=== PATIENT | female | born 1935 | race Asian ===

== ENCOUNTER 2016-10-26 11:43 | Inpatient (IN) | payer MEDICARE, OTHER ==
[~2016-10-26] VITALS: Ht 170.2 cm; Wt 59.0 kg
[2016-10-26] MEDS ORDERED: URECHOLINE25 M1 ORAL (12:20)
[2016-10-26] MEDS ORDERED: SENNA8.6 M2 PO (12:20)
[2016-10-26] MEDS ORDERED: GLYTROL250 ML PO (12:20)
[2016-10-26] MEDS ORDERED: ASPIRIN81 MG ORAL (12:20)
[2016-10-26] MEDS ORDERED: ATORVASTATIN CA20 MG ORAL (12:20)
[2016-10-26] MEDS ORDERED: CLOPIDOGREL75 MG ORAL (12:20)
[2016-10-26] MEDS ORDERED: MELATONIN3 MG ORAL (12:26)
[2016-10-26] MEDS ORDERED: MIRTAZAPINE15 MG ORAL (12:26)
[2016-10-26] MEDS ORDERED: PEPCID20 MG ORAL (12:26)
[2016-10-26] MEDS ORDERED: NOVOLOG100 UNIT/3 SUBQ (12:26)
[2016-10-26] MEDS ORDERED: METFORMIN HCL500 M1 ORAL (12:26)
[2016-10-26] MEDS ORDERED: MULTIVITAMINS1 EAC8 ORAL (12:26)
[2016-10-26] MEDS ORDERED: BISACODYL5 MG ORAL (12:26)
[2016-10-26] MEDS ORDERED: JANUVIA25 MG ORAL (12:26)
[2016-10-26] MEDS ORDERED: ACTOS15 MG ORAL (12:26)
[2016-10-26] MEDS ORDERED: TRAVATAN Z5 ML OP (12:26)
[2016-10-26] MEDS ORDERED: LANTUS SOL100 UNIT/1 SUBQ (12:26)
[2016-10-26 12:30] VITALS: BP 118/61
[2016-10-26 12:51] LABS: BASOPHILS % (AUTO) 0.6 % (0.0-2.0); EOSINOPHILS % (AUTO) 0.2 % (0.0-3.0); LYMPHOCYTES % (AUTO) 20.1 % (20.0-45.0); MEAN CORPUSCULAR HEMOGLOBIN 31.1 PG (27.0-31.0); MEAN CORPUSCULAR VOLUME 94 FL (80-99); MEAN PLATELET VOLUME 10.7 FL (6.5-10.1); MONOCYTES % (AUTO) 4.9 % (1.0-10.0); NEUTROPHILS % (AUTO) 74.3 % (45.0-75.0); PLATELET COUNT 124 K/UL (150-450); RED BLOOD COUNT 3.91 M/UL (4.20-5.40); RED CELL DISTRIBUTION WIDTH 12.8 % (11.6-14.8); WHITE BLOOD COUNT 11.2 K/UL (4.8-10.8)
[2016-10-26 12:52] LABS: APPEARANCE,URINE SLIGHTLY CLOUDY; KETONES,URINE NEGATIVE (NEGATIVE); LEUKOCYTE ESTERASE ,URINE 3+ (NEGATIVE); NITRITE,URINE NEGATIVE (NEGATIVE); PH,URINE 5 (4.5-8.0); PROTEIN,URINE 1+ (NEGATIVE); UROBILINOGEN,URINE NORMAL MG/DL (0.0-1.0)
[2016-10-26 12:53] LABS: TROPONIN I < 0.30 ng/mL (<=0.30)
[2016-10-26 12:56] LABS: ALANINE AMINOTRANSFERASE 16 U/L (3-33); ALBUMIN/GLOBULIN RATIO 0.4 (1.0-2.7); ANION GAP 12 (5-15); ASPARTATE AMINO TRANSFERASE 33 U/L (5-40); CALCIUM 8.2 mg/dL (8.6-10.2); CARBON DIOXIDE 30 mEQ/L (20-30); CHLORIDE 97 mEQ/L (98-107); CREATININE 0.4 mg/dL (0.5-0.9); HEMOLYSIS 39; POTASSIUM 2.9 mEQ/L (3.4-4.9); SODIUM 139 mEQ/L (135-145); TOTAL PROTEIN 6.3 g/dL (6.6-8.7)
[2016-10-26 13:04] LABS: BACTERIA,URINE MODERATE /HPF; SQUAMOUS EPITHELIAL CELL,UR FEW /LPF (NONE/OCC); WBC,URINE 15-20 /HPF (0 - 2)
[2016-10-26 13:06] LABS: CKMB < 1.5 ng/mL (< 3.8)
[2016-10-26 14:00] VITALS: BP 127/51
--- NOTE | 2016-10-26 14:16 | Emergency Room Report ---
History of Present Illness General Chief Complaint: General Complaint Source: Medical Record Present Illness HPI 81-year-old female presents to ED for evaluation. Per EMS patient noted to be weak with poor oral intake for several days now. He resides in convalescent home. Patient was being treated for UTI with antibiotics. However patient noted to be more altered his usual, with declining oral intake. No aggravating or relieving factors. Patient afebrile. Patient is DO NOT RESUSCITATE. No reported chest pain or shortness of breath. No reported nausea or vomiting. No other associated symptoms Allergies: Coded Allergies: IBUPROFEN (Verified Allergy, Intermediate, 10/26/16) Patient History Past Medical History: dementia Past Surgical History: none Pertinent Family History: none Social History: Denies: alcohol use, drug use, smoking Now: No Immunizations: UTD Reviewed Nursing Documentation: PMH: Agreed, PSxH: Agreed Nursing Documentation-PMH Past Medical History: No History, Except For Hx Hypertension: Yes Hx Diabetes: Yes Hx Neurological Problems: Yes - dementia Review of Systems All Other Systems: negative except mentioned in HPI Physical Exam Vital Signs Date Time Temp Pulse Resp B/P Pulse Ox O2 Delivery O2 Flow Rate FiO2 10/26/16 11:48 98.2 70 18 140/64 96 Room Air Sp02 EP Interpretation: reviewed, normal General Appearance: no apparent distress, lethargic, thin Head: normocephalic Eyes: bilateral eye PERRL, bilateral eye normal inspection ENT: normal ENT inspection Neck: normal inspection Respiratory: chest non-tender, lungs clear, normal breath sounds, speaking full sentences Cardiovascular #1: regular rate, rhythm, no edema Gastrointestinal: normal bowel sounds, non tender, soft, non-distended, no guarding, no rebound Rectal: deferred Genitourinary: no CVA tenderness Musculoskeletal: normal inspection Neurologic: other - dementia Psychiatric: other - dementia Skin: normal inspection Lymphatic: normal inspection Medical Decision Making Diagnostic Impression: Primary Impression: Dehydration Additional Impressions: UTI (urinary tract infection) Qualified Codes: N39.0 - Urinary tract infection, site not specified Hypokalemia ER Course Hospital Course 81-year-old female presenting to ED with generalized weakness, poor oral intake Differential diagnoses include: Pneumonia, UTI, sepsis, dehydration, [place]/ unstable angina Clinical course Patient placed on stretcher. On bulb planter with stable vitals are ED course. After initial history and physical, I ordered labs, IV fluids, EKG, chest x-ray, blood cultures, UA. Labs - K 2.9, noted leukocytosis, troponins negative, UA grossly positive for UTI, lactate ok CXR - no acute process Abx given. K replted. IVFs given. Case discussed with Dr Joya and they agreed to admit patient to their service for further care and support I feel this is a highly complex case requiring extensive working including EKG/ Rhythm strip, Xray/CT/US, Blood/urine lab work, repeat exams while in ED, and administration of strong opiates/narcotics for pain control, admission to hospital or close patient follow up. Diagnosis - UTI, dehydration, hypokalemia Patient admitted to floor in serious condition Labs Test 10/26/16 12:05 White Blood Count 11.2 K/UL (4.8-10.8) Red Blood Count 3.91 M/UL (4.20-5.40) Hemoglobin 12.2 G/DL (12.0-16.0) Hematocrit 36.8 % (37.0-47.0) Mean Corpuscular Volume 94 FL (80-99) Mean Corpuscular Hemoglobin 31.1 PG (27.0-31.0) Mean Corpuscular Hemoglobin Concent 33.0 G/DL (32.0-36.0) Red Cell Distribution Width 12.8 % (11.6-14.8) Platelet Count 124 K/UL (150-450) Mean Platelet Volume 10.7 FL (6.5-10.1) Neutrophils (%) (Auto) 74.3 % (45.0-75.0) Lymphocytes (%) (Auto) 20.1 % (20.0-45.0) Monocytes (%) (Auto) 4.9 % (1.0-10.0) Eosinophils (%) (Auto) 0.2 % (0.0-3.0) Basophils (%) (Auto) 0.6 % (0.0-2.0) Urine Color Yellow Urine Appearance Slightly cloudy Urine pH 5 (4.5-8.0) Urine Specific [place] 1.015 (1.005-1.035) Urine Protein 1+ (NEGATIVE) Urine Glucose (UA) Negative (NEGATIVE) Urine Ketones Negative (NEGATIVE) Urine Occult Blood 2+ (NEGATIVE) Urine Nitrite Negative (NEGATIVE) Urine Bilirubin Negative (NEGATIVE) Urine Urobilinogen Normal MG/DL (0.0-1.0) Urine Leukocyte Esterase 3+ (NEGATIVE) Urine RBC 2-4 /HPF (0 - 2) Urine WBC 15-20 /HPF (0 - 2) Urine Squamous Epithelial Cells Few /LPF (NONE/OCC) Urine Bacteria Moderate /HPF (NONE) Sodium Level 139 mEQ/L (135-145) Potassium Level 2.9 mEQ/L (3.4-4.9) Chloride Level 97 mEQ/L (98-107) Carbon Dioxide Level 30 mEQ/L (20-30) Anion Gap 12 (5-15) Blood Urea Nitrogen 8 mg/dL (7-23) Creatinine 0.4 mg/dL (0.5-0.9) Estimat Glomerular Filtration Rate mL/min (>60) Glucose Level 67 mg/dL (74-106) Lactic Acid Level 1.70 mmol/L (0.66-2.22) Calcium Level 8.2 mg/dL (8.6-10.2) Total Bilirubin 0.7 mg/dL (0.0-1.2) Aspartate Amino Transf (AST/SGOT) 33 U/L (5-40) Alanine Aminotransferase (ALT/SGPT) 16 U/L (3-33) Alkaline Phosphatase 108 U/L (35-104) Total Creatine Kinase 13 U/L (26-140) Creatine Kinase MB < 1.5 ng/mL (< 3.8) Creatine Kinase MB Relative Index Troponin I < 0.30 ng/mL (<=0.30) Total Protein 6.3 g/dL (6.6-8.7) Albumin 1.9 g/dL (3.5-5.2) Globulin 4.4 g/dL Albumin/Globulin Ratio 0.4 (1.0-2.7) EKG Diagnostic Results Rate: normal Rhythm: NSR ST Segments: no acute changes ASA given to the pt in ED: No Rhythm Strip Diag. Results EP Interpretation: yes Rhythm: NSR, no PVC's, no ectopy Chest X-Ray Diagnostic Results EP Interpretation: Yes Findings: no consolidation, no effusion, no pneumothorax, no acute cardiopulmonary disease Number of Views: 1 Last Vital Signs Date Time Temp Pulse Resp B/P Pulse Ox O2 Delivery O2 Flow Rate FiO2 10/26/16 12:30 99.1 84 20 118/61 99 Room Air Status: improved Disposition: ADMITTED INPATIENT Condition: Serious Referrals: NON PHYSICIAN (PCP) BRIAN GOLD M.D. Oct 26, 2016 14:16
[2016-10-26 15:27] VITALS: BP 126/52
--- NOTE | 2016-10-26 18:15 | History and Physical ---
History of Present Illness General Date patient seen: Oct 26, 2016 Time patient seen: 18:00 Reason for Hospitalization: General Complaint Present Illness HPI 81 y/old female was brought from SNF for evaluation, patient was treated for UTI in SNF with antibiotics Nursing staff noted poor oral intake and increase in generalized weakness over few days patient was more altered than usually no reported fevers, chills no reported n/v/abdominal pain no reported SOB, chest pain Patient DNR/DNI status in ED workup with mild leukocytosis-11.2, UA with evidence of infection ( pyuria, bacteria), lactic acid -WNL CXR no acute process K-2.9, replaced in ED started on Ceftriaxone and transferred to [facility] floor for further management Allergies: Coded Allergies: IBUPROFEN (Verified Allergy, Intermediate, 10/26/16) Medication History Scheduled Aspirin* (Aspirin*), 81 MG ORAL DAILY, (Reported) Atorvastatin Calcium* (Atorvastatin Calcium*), 20 MG ORAL BEDTIME, (Reported) Bethanechol Chl* (Urecholine*), 25 MG ORAL THREE TIMES A DAY, (Reported) Bisacodyl* (Dulcolax*), 5 MG ORAL DAILY, (Reported) Clopidogrel* (Clopidogrel*), 75 MG ORAL DAILY, (Reported) Famotidine (Pepcid), 20 MG ORAL DAILY, (Reported) Insulin Glargine (Lantus), 15 SUBQ BEDTIME, (Reported) Metformin Hcl* (Metformin Hcl*), 500 MG ORAL TWICE A DAY, (Reported) Mirtazapine* (Remeron*), 7.5 MG ORAL BEDTIME, (Reported) Multivitamin With Minerals (Multivitamins With Minerals*), 1 TAB ORAL DAILY, ( Reported) Nut.tx.gluc.intoler,Lac-Fr,Soy (Glytrol), 240 ML PO TID, (Reported) Pioglitazone Hcl* (Actos*), 7.5 MG ORAL DAILY, (Reported) Sennosides (Senna), 8.6 MG PO DAILY, (Reported) Sitagliptin* (Januvia*), 100 MG ORAL DAILY, (Reported) Travoprost (Travatan Z), 5 ML OP BEDTIME, (Reported) Scheduled PRN Melatonin (Melatonin), 3 MG ORAL BEDTIME PRN for Insomnia, (Reported) Miscellaneous Medications Insulin Aspart* (Novolog*), Unknown Dose SUBQ, (Reported) Patient History Healthcare decision maker Resuscitation status Advanced Directive on File Review of Systems ROS Narrative unable to provide any info due to ALOC Physical Exam General Appearance: no apparent distress, cachetic Lines, tubes and drains: peripheral HEENT: normocephalic, atraumatic, anicteric Neck: supple Respiratory/Chest: normal breath sounds, no respiratory distress, no accessory muscle use, other - poorly responsive Cardiovascular/Chest: normal rate, regular rhythm Abdomen: normal bowel sounds, non tender, soft Extremities: other - rigid LE Neurologic: abnormal gait Musculoskeletal: atrophy - BLE Last 24 Hour Vital Signs Date Time Temp Pulse Resp B/P Pulse Ox O2 Delivery O2 Flow Rate FiO2 10/26/16 17:53 98.6 84 21 140/77 100 Room Air 84 10/26/16 15:27 98.6 73 22 126/52 100 Room Air 10/26/16 14:00 73 18 127/51 99 Room Air 10/26/16 12:30 99.1 84 20 118/61 99 Room Air 10/26/16 11:48 98.2 70 18 140/64 96 Room Air Laboratory Tests Test 10/26/16 12:05 White Blood Count 11.2 K/UL (4.8-10.8) H Red Blood Count 3.91 M/UL (4.20-5.40) L Hemoglobin 12.2 G/DL (12.0-16.0) Hematocrit 36.8 % (37.0-47.0) L Mean Corpuscular Volume 94 FL (80-99) Mean Corpuscular Hemoglobin 31.1 PG (27.0-31.0) H Mean Corpuscular Hemoglobin Concent 33.0 G/DL (32.0-36.0) Red Cell Distribution Width 12.8 % (11.6-14.8) Platelet Count 124 K/UL (150-450) L Mean Platelet Volume 10.7 FL (6.5-10.1) H Neutrophils (%) (Auto) 74.3 % (45.0-75.0) Lymphocytes (%) (Auto) 20.1 % (20.0-45.0) Monocytes (%) (Auto) 4.9 % (1.0-10.0) Eosinophils (%) (Auto) 0.2 % (0.0-3.0) Basophils (%) (Auto) 0.6 % (0.0-2.0) Urine Color Yellow Urine Appearance Slightly cloudy Urine pH 5 (4.5-8.0) Urine Specific [place] 1.015 (1.005-1.035) Urine Protein 1+ (NEGATIVE) H Urine Glucose (UA) Negative (NEGATIVE) Urine Ketones Negative (NEGATIVE) Urine Occult Blood 2+ (NEGATIVE) H Urine Nitrite Negative (NEGATIVE) Urine Bilirubin Negative (NEGATIVE) Urine Urobilinogen Normal MG/DL (0.0-1.0) Urine Leukocyte Esterase 3+ (NEGATIVE) H Urine RBC 2-4 /HPF (0 - 2) H Urine WBC 15-20 /HPF (0 - 2) H Urine Squamous Epithelial Cells Few /LPF (NONE/OCC) Urine Bacteria Moderate /HPF (NONE) H Sodium Level 139 mEQ/L (135-145) Potassium Level 2.9 mEQ/L (3.4-4.9) L Chloride Level 97 mEQ/L (98-107) L Carbon Dioxide Level 30 mEQ/L (20-30) Anion Gap 12 (5-15) Blood Urea Nitrogen 8 mg/dL (7-23) Creatinine 0.4 mg/dL (0.5-0.9) L Estimat Glomerular Filtration Rate mL/min (>60) Glucose Level 67 mg/dL (74-106) L Lactic Acid Level 1.70 mmol/L (0.66-2.22) Calcium Level 8.2 mg/dL (8.6-10.2) L Total Bilirubin 0.7 mg/dL (0.0-1.2) Aspartate Amino Transf (AST/SGOT) 33 U/L (5-40) Alanine Aminotransferase (ALT/SGPT) 16 U/L (3-33) Alkaline Phosphatase 108 U/L (35-104) H Total Creatine Kinase 13 U/L (26-140) L Creatine Kinase MB < 1.5 ng/mL (< 3.8) Creatine Kinase MB Relative Index Troponin I < 0.30 ng/mL (<=0.30) Total Protein 6.3 g/dL (6.6-8.7) L Albumin 1.9 g/dL (3.5-5.2) L Globulin 4.4 g/dL Albumin/Globulin Ratio 0.4 (1.0-2.7) L Height (Feet): 5 Height (Inches): 7.00 Weight (Pounds): 130 Medications Current Medications Medications (Trade) Dose Ordered Sig/Patience Route PRN Reason Start Time Stop Time Status Last Admin Dose Admin Potassium Chloride (KCl 10mEq/100ml Premix) 100 ml @ 100 mls/hr Q1H IV 10/26/16 14:15 10/26/16 20:14 10/26/16 16:56 Assessment/Plan Assessment/Plan ASSESSMENT possible sepsis UTI dehydration generalized weakness hypokalemia severe protein calorie malnutrition HTN DM PLAN OF CARE [facility] floor IVF NPO empiric abx, fup with cx ID consult K replaced in ED, check K and Mg in am BS management with sensitive scale of insulin BP management with Clonidine prn swallow eval in am dietary eval in am Venous Duplex BLE, if negative place SCD ( no Heparin due to low PLT) case discussed and evaluated by supervising physician Judy Sal NP ([facility]) Oct 26, 2016 18:15
[2016-10-26] MEDS ORDERED: Morphine Sulfate 2mg/ml Inj IVP PRN (18:45)
[2016-10-26] MEDS: D5 1/2NS 1,000 ML IV SCH (19:26)
[2016-10-26 20:00] VITALS: BP 146/69
--- NOTE | 2016-10-26 20:34 | Consultation ---
Consult Note Consult Note ID Dic # [id number] NICHOLE YOUNG M.D. Oct 26, 2016 20:33
[2016-10-26] MEDS ORDERED: Heparin 5000 units/ml inj SUBQ SCH (21:00)
[2016-10-26] MEDS: NovoLOG Insulin Flexpen SUBQ SCH (21:00)
--- NOTE | 2016-10-26 21:37 | Consultation ---
DATE OF CONSULTATION: 10/26/2016 INFECTIOUS DISEASE CONSULTATION CONSULTING PHYSICIAN: John Maria M.D. REFERRING PHYSICIAN: Judy Sal ([facility] N.PMelodie REASON FOR CONSULTATION: Evaluation of the patient for possible urinary tract infection and antibiotic management. HISTORY OF PRESENT ILLNESS: The patient is an 81-year-old female, who was brought to the hospital due to general weakness. The patient's workup was suggestive of urinary tract infection. Infectious Disease consultation has been requested for further evaluation of the patient's antibiotic management. The patient is overall a poor historian. Much of the information was gathered through the chart and speaking to the staff. PAST MEDICAL HISTORY: 1. History of blindness. 2. History of loss of hearing. 3. History of dementia. 4. History of hyperlipidemia. 5. Hypertension. 6. Diabetes. ALLERGIES: Ibuprofen. SOCIAL HISTORY: Negative for alcohol, drug abuse, or smoking. FAMILY HISTORY: Noncontributory. REVIEW OF SYSTEMS: Limited. Much of the information was gathered through the chart. The patient is a poor historian. PHYSICAL EXAMINATION: VITAL SIGNS: Temperature 98.6 degrees, blood pressure 114/77, pulse 84, and respiratory rate 18. HEENT: No pale conjunctivae. No icterus. PERRLA. Head normocephalic. Mouth, no thrush. NECK: No lymphadenopathy. CHEST: Coarse breathing sounds. HEART: S1 and S2. ABDOMEN: Soft. EXTREMITIES: No cyanosis. NEUROLOGIC: Awake. LABORATORY DATA: White blood cell 11.2, hemoglobin 12, and platelets 124,000. UA, 15 to 20 white blood cells. BUN 8 and creatinine 0.4. ALT and AST unremarkable. Alkaline phosphatase was 108. Chest x-ray is pending. Urine culture is pending. Blood culture is pending. ASSESSMENT: The patient is an 81-year-old female with multiple medical problems as listed above, who was admitted to this medical center with general weakness, possible urinary tract infection. The patient has been appropriately started on Zosyn as empiric treatment. PLAN: 1. We will continue the patient on IV Zosyn day #1. 2. Monitor blood culture. 3. Monitor urine culture. 4. Monitor CBC and BMP. 5. Monitor chest x-ray. Based on the patient's clinical course and laboratories, we will do further recommendations. Thank you, Nurse practitioner, Judy Sal for allowing me to participate in the care of this patient. I will follow the patient with you during this hospitalization. John Maria M.D. DR: BRENDA JOB#: [id number] CC:
[2016-10-27 00:05] VITALS: BP 148/70
[2016-10-27 04:13] VITALS: BP 96/52
[2016-10-27] MEDS: NovoLOG Insulin Flexpen SUBQ SCH ×4 (06:11→20:42)
[2016-10-27 08:04] VITALS: BP 116/47
[2016-10-27 08:10] LABS: MEAN CORPUSCULAR HEMOGLOBIN 31.5 PG (27.0-31.0); MEAN CORPUSCULAR HGB CONC 33.9 G/DL (32.0-36.0); MEAN CORPUSCULAR VOLUME 93 FL (80-99); MEAN PLATELET VOLUME 9.4 FL (6.5-10.1); PLATELET COUNT 146 K/UL (150-450); RED BLOOD COUNT 3.59 M/UL (4.20-5.40); RED CELL DISTRIBUTION WIDTH 12.7 % (11.6-14.8); WHITE BLOOD COUNT 13.7 K/UL (4.8-10.8)
[2016-10-27 08:28] LABS: ANION GAP 10 (5-15); CALCIUM 7.6 mg/dL (8.6-10.2); CARBON DIOXIDE 31 mEQ/L (20-30); CHLORIDE 96 mEQ/L (98-107); CREATININE 0.4 mg/dL (0.5-0.9); HEMOLYSIS 4; MAGNESIUM 1.3 mg/dL (1.7-2.5); SODIUM 137 mEQ/L (135-145)
[2016-10-27 08:42] LABS: HEMOGLOBIN A1C 7.8 % (< 6.0)
[2016-10-27] MEDS: D5 1/2NS 1,000 ML IV SCH ×2 (08:50→22:15)
[2016-10-27 09:00] LABS: BAND NEUTROPHILS % (MANUAL) 2 % (0-8); BASOPHILS % (MANUAL) 0 % (0-2); EOSINOPHILS % (MANUAL) 0 % (0-3); HYPOCHROMASIA 1+; LYMPHOCYTES % (MANUAL) 8 % (20-45); NEUTROPHILS % (MANUAL) 87 % (45-75); PLATELET ESTIMATE ADEQUATE; PLATELET MORPHOLOGY NORMAL; TOTAL CELLS COUNTED 100
--- NOTE | 2016-10-27 09:58 | Cardiology Report ---
APPROVED REPORT EKG Measurement Heart [id number] Sinus rhythm with premature atrial complexes Left axis deviation Pulmonary disease pattern Nonspecific T wave abnormality Abnormal ECG
--- NOTE | 2016-10-27 10:10 | Diagnostic Imaging Report ---
Indication: Shortness of breath Technique: One view of the chest Comparison: none Findings: There is pleural fluid on the left. There may be minimal pleural fluid on the right Lungs are clear except for perhaps some atelectatic changes at the left lung base.. The heart size is normal. Impression: Left-sided pleural effusion. Equivocal minimal right-sided pleural fluid Possible left basilar atelectatic changes. Otherwise clear lungs
--- NOTE | 2016-10-27 11:45 | Infectious Diseases Prog Note ---
Assessment/Plan Assessment/Plan A: The patient is an 81-year-old female, UTI GNR Bacteremia GNR Sepsis History of blindness. History of loss of hearing. Dementia. HLD HTN Diabetes PLAN: cont on IV Zosyn day #2 Monitor blood culture Monitor urine culture. Monitor CBC and BMP. Monitor chest x-ray US of Kidney Subjective Constitutional: Denies: anorexia, chills, drenching sweats, fatigue, fever, no symptoms, other Allergies: Coded Allergies: IBUPROFEN (Verified Allergy, Intermediate, 10/26/16) Objective Vital Signs Last 24 Hour Vital Signs Date Time Temp Pulse Resp B/P Pulse Ox O2 Delivery O2 Flow Rate FiO2 10/27/16 08:04 97.9 101 15 116/47 98 Room Air 10/27/16 04:13 97.0 70 20 96/52 96 Room Air 10/27/16 00:05 97.0 88 20 148/70 99 Room Air 10/26/16 20:00 95.7 83 14 146/69 100 Room Air 10/26/16 17:53 98.6 84 21 140/77 100 Room Air 84 10/26/16 15:27 98.6 73 22 126/52 100 Room Air 10/26/16 14:00 73 18 127/51 99 Room Air 10/26/16 12:30 99.1 84 20 118/61 99 Room Air 10/26/16 11:48 98.2 70 18 140/64 96 Room Air Height (Feet): 5 Height (Inches): 7.00 Weight (Pounds): 130 HEENT: anicteric Respiratory/Chest: normal breath sounds Cardiovascular: normal rate Abdomen: no organomegaly Microbiology Date/Time Source Procedure Growth Status 10/26/16 12:05 Blood Blood Culture - Preliminary Resulted 10/26/16 12:05 Blood Blood Culture - Preliminary Resulted 10/26/16 12:05 Urine,Clean Catch Urine Culture - Preliminary Gram Negative Bacillus 1 Resulted Laboratory Tests Test 10/26/16 12:05 10/27/16 07:40 White Blood Count 11.2 K/UL (4.8-10.8) H 13.7 K/UL (4.8-10.8) H Red Blood Count 3.91 M/UL (4.20-5.40) L 3.59 M/UL (4.20-5.40) L Hemoglobin 12.2 G/DL (12.0-16.0) 11.3 G/DL (12.0-16.0) L Hematocrit 36.8 % (37.0-47.0) L 33.4 % (37.0-47.0) L Mean Corpuscular Volume 94 FL (80-99) 93 FL (80-99) Mean Corpuscular Hemoglobin 31.1 PG (27.0-31.0) H 31.5 PG (27.0-31.0) H Mean Corpuscular Hemoglobin Concent 33.0 G/DL (32.0-36.0) 33.9 G/DL (32.0-36.0) Red Cell Distribution Width 12.8 % (11.6-14.8) 12.7 % (11.6-14.8) Platelet Count 124 K/UL (150-450) L 146 K/UL (150-450) L Mean Platelet Volume 10.7 FL (6.5-10.1) H 9.4 FL (6.5-10.1) Neutrophils (%) (Auto) 74.3 % (45.0-75.0) % (45.0-75.0) Lymphocytes (%) (Auto) 20.1 % (20.0-45.0) % (20.0-45.0) Monocytes (%) (Auto) 4.9 % (1.0-10.0) % (1.0-10.0) Eosinophils (%) (Auto) 0.2 % (0.0-3.0) % (0.0-3.0) Basophils (%) (Auto) 0.6 % (0.0-2.0) % (0.0-2.0) Urine Color Yellow Urine Appearance Slightly cloudy Urine pH 5 (4.5-8.0) Urine Specific [place] 1.015 (1.005-1.035) Urine Protein 1+ (NEGATIVE) H Urine Glucose (UA) Negative (NEGATIVE) Urine Ketones Negative (NEGATIVE) Urine Occult Blood 2+ (NEGATIVE) H Urine Nitrite Negative (NEGATIVE) Urine Bilirubin Negative (NEGATIVE) Urine Urobilinogen Normal MG/DL (0.0-1.0) Urine Leukocyte Esterase 3+ (NEGATIVE) H Urine RBC 2-4 /HPF (0 - 2) H Urine WBC 15-20 /HPF (0 - 2) H Urine Squamous Epithelial Cells Few /LPF (NONE/OCC) Urine Bacteria Moderate /HPF (NONE) H Sodium Level 139 mEQ/L (135-145) 137 mEQ/L (135-145) Potassium Level 2.9 mEQ/L (3.4-4.9) L 3.0 mEQ/L (3.4-4.9) L Chloride Level 97 mEQ/L (98-107) L 96 mEQ/L (98-107) L Carbon Dioxide Level 30 mEQ/L (20-30) 31 mEQ/L (20-30) H Anion Gap 12 (5-15) 10 (5-15) Blood Urea Nitrogen 8 mg/dL (7-23) 5 mg/dL (7-23) L Creatinine 0.4 mg/dL (0.5-0.9) L 0.4 mg/dL (0.5-0.9) L Estimat Glomerular Filtration Rate mL/min (>60) mL/min (>60) Glucose Level 67 mg/dL (74-106) L 85 mg/dL (74-106) Lactic Acid Level 1.70 mmol/L (0.66-2.22) Calcium Level 8.2 mg/dL (8.6-10.2) L 7.6 mg/dL (8.6-10.2) L Total Bilirubin 0.7 mg/dL (0.0-1.2) Aspartate Amino Transf (AST/SGOT) 33 U/L (5-40) Alanine Aminotransferase (ALT/SGPT) 16 U/L (3-33) Alkaline Phosphatase 108 U/L (35-104) H Total Creatine Kinase 13 U/L (26-140) L Creatine Kinase MB < 1.5 ng/mL (< 3.8) Creatine Kinase MB Relative Index Troponin I < 0.30 ng/mL (<=0.30) Total Protein 6.3 g/dL (6.6-8.7) L Albumin 1.9 g/dL (3.5-5.2) L Globulin 4.4 g/dL Albumin/Globulin Ratio 0.4 (1.0-2.7) L Differential Total Cells Counted 100 Neutrophils % (Manual) 87 % (45-75) H Lymphocytes % (Manual) 8 % (20-45) L Monocytes % (Manual) 3 % (1-10) Eosinophils % (Manual) 0 % (0-3) Basophils % (Manual) 0 % (0-2) Band Neutrophils 2 % (0-8) Platelet Estimate Adequate Platelet Morphology Normal Hypochromasia 1+ Hemoglobin A1c 7.8 % (< 6.0) H Magnesium Level 1.3 mg/dL (1.7-2.5) L Current Medications Medications (Trade) Dose Ordered Sig/Patience Route PRN Reason Start Time Stop Time Status Last Admin Dose Admin Clonidine HCl (Catapres) 0.1 mg Q6H PRN ORAL SBP >160 10/26/16 18:45 11/25/16 18:44 Dextrose (Dextrose 50%) STAT PRN IV Hypoglycemia 10/26/16 18:45 11/25/16 18:44 10/26/16 21:47 Dextrose/Sodium Chloride (D5 0.45% NS) 1,000 ml @ 75 mls/hr [id number] IV 10/26/16 19:30 11/25/16 19:29 10/26/16 19:26 Insulin Aspart (NovoLOG) BEFORE MEALS AND HS SUBQ 10/26/16 21:00 11/25/16 20:59 Morphine Sulfate 1 mg 1 mg Q6H PRN IVP For Pain 10/26/16 18:45 11/02/16 18:44 Piperacillin Sod/ Tazobactam Sod/ Sodium Chloride (Zosyn/Sodium Chloride 100ml bag) 100 ml @ 25 mls/hr EVERY 8 HOURS IVPB 10/26/16 22:00 10/31/16 21:59 10/27/16 06:11 NICHOLE YOUNG M.D. Oct 27, 2016 11:45
[2016-10-27 11:47] VITALS: BP 117/50
--- NOTE | 2016-10-27 14:46 | Pulmonology Progress Note ---
Assessment/Plan Problems: (1) UTI (urinary tract infection) (2) Sepsis (3) Acute encephalopathy (4) Severe protein-calorie malnutrition (5) At high risk for aspiration Assessment/Plan iv antibiotics iv fluids check cultures swallow evaluation dvt prophlaxis ID f/u Subjective ROS Limited/Unobtainable: Yes - awake, not communicating Allergies: Coded Allergies: IBUPROFEN (Verified Allergy, Intermediate, 10/26/16) Objective Last 24 Hour Vital Signs Date Time Temp Pulse Resp B/P Pulse Ox O2 Delivery O2 Flow Rate FiO2 10/27/16 11:47 97.7 95 16 117/50 98 Room Air 10/27/16 08:04 97.9 101 15 116/47 98 Room Air 10/27/16 04:13 97.0 70 20 96/52 96 Room Air 10/27/16 00:05 97.0 88 20 148/70 99 Room Air 10/26/16 20:00 95.7 83 14 146/69 100 Room Air 10/26/16 17:53 98.6 84 21 140/77 100 Room Air 84 10/26/16 15:27 98.6 73 22 126/52 100 Room Air Intake and Output 10/26/16 10/27/16 19:00 07:00 Intake Total 50 ml 175 ml Output Total 400 ml 1500 ml Balance -350 ml -1325 ml Intake IV Total 50 ml 175 ml Output Urine Total 400 ml 1500 ml General Appearance: WD/WN Respiratory/Chest: chest wall non-tender, lungs clear Breasts: no masses Cardiovascular: normal peripheral pulses Abdomen: normal bowel sounds, soft, non tender Genitourinary: normal external genitalia Extremities: no cyanosis, no clubbing 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 Lymphatic: no neck adenopathy Microbiology Date/Time Source Procedure Growth Status 10/26/16 12:05 Blood Blood Culture - Preliminary Resulted 10/26/16 12:05 Blood Blood Culture - Preliminary Resulted 10/26/16 12:05 Urine,Clean Catch Urine Culture - Preliminary Gram Negative Bacillus 1 Resulted Laboratory Tests 10/27/16 07:40: White Blood Count 13.7H, Red Blood Count 3.59L, Hemoglobin 11.3L, Hematocrit 33.4L, Mean Corpuscular Volume 93, Mean Corpuscular Hemoglobin 31.5H, Mean Corpuscular Hemoglobin Concent 33.9, Red Cell Distribution Width 12.7, Platelet Count 146L, Mean Platelet Volume 9.4, Neutrophils (%) (Auto) , Lymphocytes (%) ( Auto) , Monocytes (%) (Auto) , Eosinophils (%) (Auto) , Basophils (%) (Auto) , Differential Total Cells Counted 100, Neutrophils % (Manual) 87H, Lymphocytes % (Manual) 8L, Monocytes % (Manual) 3, Eosinophils % (Manual) 0, Basophils % ( Manual) 0, Band Neutrophils 2, Platelet Estimate Adequate, Platelet Morphology Normal, Hypochromasia 1+, Sodium Level 137, Potassium Level 3.0L, Chloride Level 96L, Carbon Dioxide Level 31H, Anion Gap 10, Blood Urea Nitrogen 5L, Creatinine 0.4L, Estimat Glomerular Filtration Rate , Glucose Level 85, Hemoglobin A1c 7.8H, Calcium Level 7.6L, Magnesium Level 1.3L Current Medications Medications (Trade) Dose Ordered Sig/Patience Route PRN Reason Start Time Stop Time Status Last Admin Dose Admin Clonidine HCl (Catapres) 0.1 mg Q6H PRN ORAL SBP >160 10/26/16 18:45 11/25/16 18:44 Dextrose (Dextrose 50%) STAT PRN IV Hypoglycemia 10/26/16 18:45 11/25/16 18:44 10/26/16 21:47 Dextrose/Sodium Chloride (D5 0.45% NS) 1,000 ml @ 75 mls/hr [id number] IV 10/26/16 19:30 11/25/16 19:29 10/26/16 19:26 Insulin Aspart (NovoLOG) BEFORE MEALS AND HS SUBQ 10/26/16 21:00 11/25/16 20:59 Morphine Sulfate 1 mg 1 mg Q6H PRN IVP For Pain 10/26/16 18:45 11/02/16 18:44 Piperacillin Sod/ Tazobactam Sod/ Sodium Chloride (Zosyn/Sodium Chloride 100ml bag) 100 ml @ 25 mls/hr EVERY 8 HOURS IVPB 10/26/16 22:00 10/31/16 21:59 10/27/16 13:13 MALOU DOUGLAS Oct 27, 2016 14:46
[2016-10-27 16:09] VITALS: BP 129/65
--- NOTE | 2016-10-27 17:56 | Wound Care Consultation ---
Wound Assessment Wound Assessment #1: Wound Present on Admission: Yes New Wound: No Status Change of Wound: No Wound Location Body Site Modif: left, lower, anterior Wound Location Body Site: leg Wound Type: other - open necrotic wound Julianna Test: Does not Julianna Wound Thickness: Full Thickness Wound Length: 19.0 Wound Width: 11.0 Wound Depth: utd Percent of Wound Black/Brown: 100 Wound Drainage Description: Serosanguineous Wound Drainage Amount: Scant Wound Drainage Odor: None/Absent Tissue Surrounding Wound: Erythemic Wound General Appearance: Blackened, Necrotic Wound Assessment #2: Wound Number: #2 Wound Present on Admission: Yes New Wound: No Status Change of Wound: No Wound Location Body Site Modif: left Wound Location Body Site: heel Wound Type: pressure ulcer Julianna Test: Does not Julianna Pressure Ulcer Stage: deep tissue injury Wound Thickness: Full Thickness Wound Length: 4.0 Wound Width: 3.0 Wound Depth: utd Percent of Wound Purple/Maroon: 100 Wound Drainage Amount: None Wound Drainage Odor: None/Absent Tissue Surrounding Wound: Intact Wound General Appearance: Asymptomatic, Reddened Wound Assessment #3: Wound Number: #3 Wound Present on Admission: Yes New Wound: No Status Change of Wound: No Wound Location Body Site Modif: right Wound Location Body Site: toe - big Wound Type: pressure ulcer Julianna Test: Does not Julianna Wound Thickness: Full Thickness Wound Length: 3.0 Wound Width: 3.0 Wound Depth: utd Percent of Wound Purple/Maroon: 100 Wound Drainage Amount: None Wound Drainage Odor: None/Absent Tissue Surrounding Wound: Intact Wound General Appearance: Asymptomatic, Reddened Wound Assessment #4: Wound Number: #4 Wound Present on Admission: Yes New Wound: No Status Change of Wound: No Wound Location Body Site Modif: mid Wound Location Body Site: sacral Wound Type: pressure ulcer Julianna Test: Does not Julianna Pressure Ulcer Stage: I Wound Drainage Amount: None Wound Drainage Odor: None/Absent Tissue Surrounding Wound: Erythemic Wound General Appearance: Reddened Wound Comment #1 Left lower anterior leg open necrotic wound #2 Left heel DTI pressure ulcer #3 Right big toe DTI pressure ulcer #4 Sacral stage I pressure ulcer Recommendation -Keep clean and dry -Turn and reposition -Local wound care with Betadine and dry drg on DTI areas on right big toe and left heel -Local wound care on necrotic open wound on left lower anterior leg with Betadine and adaptic followed by dry drg -Apply skin barrier cream on sacral area -Offload both heels -Elevate both legs -Low air loss overlay mattress -Optimize nutrition -Assess and f/u accordingly for an changes NEY CABALLERO RN Oct 27, 2016 17:56
[2016-10-27 20:14] VITALS: BP 125/75
[2016-10-27] MEDS: Heparin 5000 units/ml inj SUBQ SCH (20:54)
[2016-10-28] VITALS: BP 128/70
[2016-10-28] MEDS: NovoLOG Insulin Flexpen SUBQ SCH ×4 (06:00→21:00)
[2016-10-28 07:19] LABS: INR 1.2 (0.9-1.1); PROTHROMBIN TIME 12.3 SEC (9.30-11.50)
[2016-10-28 07:27] LABS: ALANINE AMINOTRANSFERASE 11 U/L (3-33); ALBUMIN/GLOBULIN RATIO 0.4 (1.0-2.7); ANION GAP 13 (5-15); ASPARTATE AMINO TRANSFERASE 9 U/L (5-40); CALCIUM 7.3 mg/dL (8.6-10.2); CARBON DIOXIDE 26 mEQ/L (20-30); CHLORIDE 93 mEQ/L (98-107); CREATININE 0.4 mg/dL (0.5-0.9); HEMOLYSIS 1; MAGNESIUM 1.8 mg/dL (1.7-2.5); MEAN CORPUSCULAR HEMOGLOBIN 31.2 PG (27.0-31.0); MEAN CORPUSCULAR HGB CONC 33.4 G/DL (32.0-36.0); MEAN CORPUSCULAR VOLUME 94 FL (80-99); MEAN PLATELET VOLUME 8.4 FL (6.5-10.1); PHOSPHORUS 2.4 mg/dL (2.5-4.8); PLATELET COUNT 172 K/UL (150-450); POTASSIUM 4.2 mEQ/L (3.4-4.9); RED BLOOD COUNT 3.19 M/UL (4.20-5.40); RED CELL DISTRIBUTION WIDTH 13.6 % (11.6-14.8); SODIUM 132 mEQ/L (135-145); TOTAL PROTEIN 5.4 g/dL (6.6-8.7); WHITE BLOOD COUNT 13.4 K/UL (4.8-10.8)
[2016-10-28 07:47] VITALS: BP 143/64
[2016-10-28 08:39] LABS: BAND NEUTROPHILS % (MANUAL) 0 % (0-8); BASOPHILS % (MANUAL) 0 % (0-2); EOSINOPHILS % (MANUAL) 0 % (0-3); LYMPHOCYTES % (MANUAL) 11 % (20-45); NEUTROPHILS % (MANUAL) 87 % (45-75); PLATELET ESTIMATE ADEQUATE; PLATELET MORPHOLOGY NORMAL; TOTAL CELLS COUNTED 100
[2016-10-28] MEDS: Heparin 5000 units/ml inj SUBQ SCH ×2 (09:25→21:44)
[2016-10-28] MEDS: D5 1/2NS 1,000 ML IV SCH (09:27)
--- NOTE | 2016-10-28 09:29 | Diagnostic Imaging Report ---
Indications: Abnormal renal function tests Technique: Transabdominal real-time grayscale and duplex Doppler imaging of the kidneys, retroperitoneum, and urinary bladder was performed Findings: Comparison: None Right kidney measures 12.6 cm in length. Normal contour, echotexture, cortical thickness. 5 mm echogenic shadowing focus interpolar parenchymal-sinus junction. No additional focal lesions, hydronephrosis, or obvious perinephric abnormalities. Left kidney measures 10.3 cm in length. Lobulated surface contour. Normal cortical thickness and echogenicity. 9 mm echogenic shadowing focus upper pole parenchymal that sinus junction.. No additional focal lesions, hydronephrosis, or obvious perinephric abnormalities. The intrahepatic portion of inferior vena cava is patent and normal caliber. Incidentally noted is fluid in the basal aspect of the right pleural space. The urinary bladder is collapsed around Clifton catheter. Mural thickening not excludable.. IMPRESSION: Bilateral nonobstructive nephrolithiasis Persistent lobation left kidney, developmental variant Otherwise sonographically unremarkable kidneys--no evidence of obstruction Collapsed urinary bladder. Pathologic mural thickening not excludable Right pleural effusion, nonspecific
--- NOTE | 2016-10-28 10:36 | Infectious Diseases Prog Note ---
Assessment/Plan Assessment/Plan A: The patient is an 81-year-old female, UTI ESBL E Coli US of Kidney : Bilateral nonobstructive nephrolithiasis Bacteremia GNR Sepsis Leucocytosis History of blindness. History of loss of hearing. Dementia. HLD HTN Diabetes PLAN: cont on IV Zosyn day # 3 change to Merrem d# / , upon Dc may change to Invanz 1 gm daily to complete the course Monitor blood culture Monitor CBC and BMP. Monitor chest x-ray Subjective Allergies: Coded Allergies: IBUPROFEN (Verified Allergy, Intermediate, 10/26/16) Objective Vital Signs Last 24 Hour Vital Signs Date Time Temp Pulse Resp B/P Pulse Ox O2 Delivery O2 Flow Rate FiO2 10/28/16 07:47 98.1 96 15 143/64 99 Room Air 10/28/16 00:00 98.6 96 20 128/70 92 Room Air 10/27/16 20:14 97.5 82 18 125/75 98 Room Air 10/27/16 16:09 97.3 89 18 129/65 98 Room Air 10/27/16 11:47 97.7 95 16 117/50 98 Room Air Height (Feet): 5 Height (Inches): 7.00 Weight (Pounds): 130 Microbiology Date/Time Source Procedure Growth Status 10/26/16 12:05 Blood Blood Culture - Preliminary Gram Negative Bacillus 1 Resulted 10/26/16 12:05 Blood Blood Culture - Preliminary Gram Negative Bacillus 1 Resulted 10/26/16 12:15 Nasal Nares MRSA Culture - Final NO METHICILLIN RESISTANT STAPH AUREUS... Complete 10/26/16 12:05 Urine,Clean Catch Urine Culture - Final Escherichia Coli - Esbl Complete 10/26/16 12:15 Rectum VRE Culture - Final NO VANCOMYCIN RESISTANT ENTEROCOCCUS ... Complete Laboratory Tests Test 10/28/16 06:45 White Blood Count 13.4 K/UL (4.8-10.8) H Red Blood Count 3.19 M/UL (4.20-5.40) L Hemoglobin 10.0 G/DL (12.0-16.0) L Hematocrit 29.9 % (37.0-47.0) L Mean Corpuscular Volume 94 FL (80-99) Mean Corpuscular Hemoglobin 31.2 PG (27.0-31.0) H Mean Corpuscular Hemoglobin Concent 33.4 G/DL (32.0-36.0) Red Cell Distribution Width 13.6 % (11.6-14.8) Platelet Count 172 K/UL (150-450) Mean Platelet Volume 8.4 FL (6.5-10.1) Neutrophils (%) (Auto) % (45.0-75.0) Lymphocytes (%) (Auto) % (20.0-45.0) Monocytes (%) (Auto) % (1.0-10.0) Eosinophils (%) (Auto) % (0.0-3.0) Basophils (%) (Auto) % (0.0-2.0) Differential Total Cells Counted 100 Neutrophils % (Manual) 87 % (45-75) H Lymphocytes % (Manual) 11 % (20-45) L Monocytes % (Manual) 2 % (1-10) Eosinophils % (Manual) 0 % (0-3) Basophils % (Manual) 0 % (0-2) Band Neutrophils 0 % (0-8) Platelet Estimate Adequate Platelet Morphology Normal Red Blood Cell Morphology Normal Prothrombin Time 12.3 SEC (9.30-11.50) H Prothromb Time International Ratio 1.2 (0.9-1.1) H Activated Partial Thromboplast Time 33 SEC (23-33) Sodium Level 132 mEQ/L (135-145) L Potassium Level 4.2 mEQ/L (3.4-4.9) Chloride Level 93 mEQ/L (98-107) L Carbon Dioxide Level 26 mEQ/L (20-30) Anion Gap 13 (5-15) Blood Urea Nitrogen 5 mg/dL (7-23) L Creatinine 0.4 mg/dL (0.5-0.9) L Estimat Glomerular Filtration Rate mL/min (>60) Glucose Level 223 mg/dL (74-106) #H Calcium Level 7.3 mg/dL (8.6-10.2) L Phosphorus Level 2.4 mg/dL (2.5-4.8) L Magnesium Level 1.8 mg/dL (1.7-2.5) Total Bilirubin 0.7 mg/dL (0.0-1.2) Aspartate Amino Transf (AST/SGOT) 9 U/L (5-40) Alanine Aminotransferase (ALT/SGPT) 11 U/L (3-33) Alkaline Phosphatase 97 U/L (35-104) Total Protein 5.4 g/dL (6.6-8.7) L Albumin 1.7 g/dL (3.5-5.2) L Globulin 3.7 g/dL Albumin/Globulin Ratio 0.4 (1.0-2.7) L Current Medications Medications (Trade) Dose Ordered Sig/Patience Route PRN Reason Start Time Stop Time Status Last Admin Dose Admin Clonidine HCl (Catapres) 0.1 mg Q6H PRN ORAL SBP >160 10/26/16 18:45 11/25/16 18:44 Dextrose (Dextrose 50%) STAT PRN IV Hypoglycemia 10/26/16 18:45 11/25/16 18:44 10/26/16 21:47 Dextrose/Sodium Chloride (D5 0.45% NS) 1,000 ml @ 75 mls/hr [id number] IV 10/26/16 19:30 11/25/16 19:29 10/28/16 09:27 Heparin Sodium (Porcine) (Heparin 5000 units/ml) 5,000 units EVERY 12 HOURS SUBQ 10/27/16 21:00 11/26/16 20:59 10/28/16 09:25 Insulin Aspart (NovoLOG) BEFORE MEALS AND HS SUBQ 10/26/16 21:00 11/25/16 20:59 Morphine Sulfate 1 mg 1 mg Q6H PRN IVP For Pain 10/26/16 18:45 11/02/16 18:44 Piperacillin Sod/ Tazobactam Sod/ Sodium Chloride (Zosyn/Sodium Chloride 100ml bag) 100 ml @ 25 mls/hr EVERY 8 HOURS IVPB 10/26/16 22:00 10/31/16 21:59 10/28/16 05:15 NICHOLE YOUNG M.D. Oct 28, 2016 10:36
[2016-10-28 11:21] VITALS: BP 129/53
[2016-10-28] MEDS: [UNRECOGNIZED DRUG - OTHER] IVPB SCH ×4 (12:52→21:43)
[2016-10-28] MEDS: MEROPENEM IVPB SCH ×4 (12:52→21:43)
[2016-10-28] MEDS ORDERED: Tubing IV Secondary IV ONE ×2 (13:12→17:51)
[2016-10-28] MEDS ORDERED: D5 1/2NS 1000ml IV ONE ×2 (13:12→17:51)
[2016-10-28] MEDS ORDERED: NS 275ml ONE (13:12)
[2016-10-28 16:00] VITALS: BP 137/61
--- NOTE | 2016-10-28 16:02 | Pulmonology Progress Note ---
Assessment/Plan Problems: (1) UTI (urinary tract infection) (2) Sepsis (3) Acute encephalopathy (4) Severe protein-calorie malnutrition (5) At high risk for aspiration Assessment/Plan iv antibiotics iv fluids check cultures swallow evaluation dvt prophlaxis check eletrolytes continue fluids check sensitiviy of E.coli Subjective ROS Limited/Unobtainable: Yes Allergies: Coded Allergies: IBUPROFEN (Verified Allergy, Intermediate, 10/26/16) Objective Last 24 Hour Vital Signs Date Time Temp Pulse Resp B/P Pulse Ox O2 Delivery O2 Flow Rate FiO2 10/28/16 11:21 97.7 86 15 129/53 98 Room Air 10/28/16 07:47 98.1 96 15 143/64 99 Room Air 10/28/16 00:00 98.6 96 20 128/70 92 Room Air 10/27/16 20:14 97.5 82 18 125/75 98 Room Air 10/27/16 16:09 97.3 89 18 129/65 98 Room Air Intake and Output 10/27/16 10/28/16 19:00 07:00 Intake Total 625 ml 550 ml Output Total 200 ml 500 ml Balance 425 ml 50 ml Intake IV Total 625 ml 550 ml Output Urine Total 200 ml 500 ml HEENT: normocephalic, atraumatic Respiratory/Chest: lungs clear Abdomen: normal bowel sounds, soft, non tender Extremities: no cyanosis Neurologic/Psychiatric: scientist electronics II-XII grossly normal Lymphatic: no neck adenopathy Musculoskeletal: normal muscle bulk, no effusion Microbiology Date/Time Source Procedure Growth Status 10/26/16 12:05 Blood Blood Culture - Preliminary Gram Negative Bacillus 1 Resulted 10/26/16 12:05 Blood Blood Culture - Preliminary Gram Negative Bacillus 1 Resulted 10/26/16 12:15 Nasal Nares MRSA Culture - Final NO METHICILLIN RESISTANT STAPH AUREUS... Complete 10/26/16 12:05 Urine,Clean Catch Urine Culture - Final Escherichia Coli - Esbl Complete 10/26/16 12:15 Rectum VRE Culture - Final NO VANCOMYCIN RESISTANT ENTEROCOCCUS ... Complete Laboratory Tests 10/28/16 06:45: White Blood Count 13.4H, Red Blood Count 3.19L, Hemoglobin 10.0L, Hematocrit 29.9L, Mean Corpuscular Volume 94, Mean Corpuscular Hemoglobin 31.2H, Mean Corpuscular Hemoglobin Concent 33.4, Red Cell Distribution Width 13.6, Platelet Count 172, Mean Platelet Volume 8.4, Neutrophils (%) (Auto) , Lymphocytes (%) ( Auto) , Monocytes (%) (Auto) , Eosinophils (%) (Auto) , Basophils (%) (Auto) , Differential Total Cells Counted 100, Neutrophils % (Manual) 87H, Lymphocytes % (Manual) 11L, Monocytes % (Manual) 2, Eosinophils % (Manual) 0, Basophils % ( Manual) 0, Band Neutrophils 0, Platelet Estimate Adequate, Platelet Morphology Normal, Red Blood Cell Morphology Normal, Prothrombin Time 12.3H, Prothromb Time International Ratio 1.2H, Activated Partial Thromboplast Time 33, Sodium Level 132L, Potassium Level 4.2, Chloride Level 93L, Carbon Dioxide Level 26, Anion Gap 13, Blood Urea Nitrogen 5L, Creatinine 0.4L, Estimat Glomerular Filtration Rate , Glucose Level 223#H, Calcium Level 7.3L, Phosphorus Level 2.4L , Magnesium Level 1.8, Total Bilirubin 0.7, Aspartate Amino Transf (AST/SGOT) 9 , Alanine Aminotransferase (ALT/SGPT) 11, Alkaline Phosphatase 97, Total Protein 5.4L, Albumin 1.7L, Globulin 3.7, Albumin/Globulin Ratio 0.4L Current Medications Medications (Trade) Dose Ordered Sig/Patience Route PRN Reason Start Time Stop Time Status Last Admin Dose Admin Clonidine HCl (Catapres) 0.1 mg Q6H PRN ORAL SBP >160 10/26/16 18:45 11/25/16 18:44 Dextrose (Dextrose 50%) STAT PRN IV Hypoglycemia 10/26/16 18:45 11/25/16 18:44 10/26/16 21:47 Dextrose/Sodium Chloride (D5 0.45% NS) 1,000 ml @ 75 mls/hr [id number] IV 10/26/16 19:30 11/25/16 19:29 10/28/16 09:27 Heparin Sodium (Porcine) 5000 units 5,000 units EVERY 12 HOURS SUBQ 10/27/16 21:00 11/26/16 20:59 10/28/16 09:25 Insulin Aspart (NovoLOG) BEFORE MEALS AND HS SUBQ 10/26/16 21:00 11/25/16 20:59 Meropenem/Sodium Chloride (Merrem/Sodium Chloride 100ml bag) 100 ml @ 200 mls/hr Q12HR IVPB 10/28/16 12:30 11/02/16 12:29 10/28/16 12:52 Morphine Sulfate (Morphine Sulfate) 1 mg Q6H PRN IVP For Pain 10/26/16 18:45 11/02/16 18:44 MALOU DOUGLAS Oct 28, 2016 16:02
[2016-10-28 19:00] VITALS: BP 127/53
[2016-10-29] VITALS: BP 126/54
[2016-10-29] MEDS: D5 1/2NS 1,000 ML IV SCH ×2 (01:39→14:22)
[2016-10-29 04:00] VITALS: BP 141/62
[2016-10-29] MEDS: NovoLOG Insulin Flexpen SUBQ SCH ×4 (06:29→22:20)
[2016-10-29 08:06] VITALS: BP 129/60
[2016-10-29] MEDS: Heparin 5000 units/ml inj SUBQ SCH (08:26)
[2016-10-29] MEDS: MEROPENEM IVPB SCH ×4 (08:27→22:16)
[2016-10-29] MEDS: [UNRECOGNIZED DRUG - OTHER] IVPB SCH ×4 (08:27→22:16)
--- NOTE | 2016-10-29 10:13 | Infectious Diseases Prog Note ---
Assessment/Plan Assessment/Plan A: The patient is an 81-year-old female, UTI ESBL E Coli US of Kidney : Bilateral nonobstructive nephrolithiasis Bacteremia ESBL E Coli Sepsis Leucocytosis History of blindness. History of loss of hearing. Dementia. HLD HTN Diabetes PLAN: cont on Merrem d# 2 / , upon Dc may change to Invanz 1 gm daily to complete the course ( SP IV Zosyn day # 3 ) Monitor blood culture Monitor CBC and BMP. Monitor chest x-ray Subjective Constitutional: Denies: anorexia, chills, drenching sweats, fatigue, fever, no symptoms, other Allergies: Coded Allergies: IBUPROFEN (Verified Allergy, Intermediate, 10/26/16) Objective Vital Signs Last 24 Hour Vital Signs Date Time Temp Pulse Resp B/P Pulse Ox O2 Delivery O2 Flow Rate FiO2 10/29/16 08:06 98.1 95 16 129/60 97 Room Air 10/29/16 04:00 97.3 96 20 141/62 97 Room Air 10/29/16 00:00 97.9 86 20 126/54 98 Room Air 10/28/16 19:00 98.1 88 20 127/53 98 Room Air 10/28/16 16:00 98.1 88 20 137/61 97 Room Air 10/28/16 11:21 97.7 86 15 129/53 98 Room Air Height (Feet): 5 Height (Inches): 7.00 Weight (Pounds): 130 HEENT: anicteric Cardiovascular: normal rate, regular rhythm Abdomen: soft, non tender, no organomegaly Microbiology Date/Time Source Procedure Growth Status 10/26/16 12:05 Blood Blood Culture - Final Escherichia Coli - Esbl Complete 10/26/16 12:05 Blood Blood Culture - Final Escherichia Coli - Esbl Complete 10/26/16 12:15 Nasal Nares MRSA Culture - Final NO METHICILLIN RESISTANT STAPH AUREUS... Complete 10/26/16 12:05 Urine,Clean Catch Urine Culture - Final Escherichia Coli - Esbl Complete 10/26/16 12:15 Rectum VRE Culture - Final NO VANCOMYCIN RESISTANT ENTEROCOCCUS ... Complete Current Medications Medications (Trade) Dose Ordered Sig/Patience Route PRN Reason Start Time Stop Time Status Last Admin Dose Admin Clonidine HCl (Catapres) 0.1 mg Q6H PRN ORAL SBP >160 10/26/16 18:45 11/25/16 18:44 Dextrose (Dextrose 50%) STAT PRN IV Hypoglycemia 10/26/16 18:45 11/25/16 18:44 10/26/16 21:47 Dextrose/Sodium Chloride (D5 0.45% NS) 1,000 ml @ 75 mls/hr [id number] IV 10/26/16 19:30 11/25/16 19:29 10/29/16 01:39 Heparin Sodium (Porcine) 5000 units 5,000 units EVERY 12 HOURS SUBQ 10/27/16 21:00 11/26/16 20:59 10/29/16 08:26 Insulin Aspart (NovoLOG) BEFORE MEALS AND HS SUBQ 10/26/16 21:00 11/25/16 20:59 Meropenem/Sodium Chloride (Merrem/Sodium Chloride 100ml bag) 100 ml @ 200 mls/hr Q12HR IVPB 10/28/16 12:30 11/02/16 12:29 10/29/16 08:27 Morphine Sulfate (Morphine Sulfate) 1 mg Q6H PRN IVP For Pain 10/26/16 18:45 11/02/16 18:44 NICHOLE YOUNG M.D. Oct 29, 2016 10:12
[2016-10-29 11:47] VITALS: BP 149/55
--- NOTE | 2016-10-29 15:07 | Pulmonology Progress Note ---
Assessment/Plan Problems: (1) UTI (urinary tract infection) (2) Sepsis (3) Acute encephalopathy (4) Severe protein-calorie malnutrition (5) At high risk for aspiration Assessment/Plan iv antibiotics iv fluids check cultures swallow evaluation dvt prophlaxis check eletrolytes continue fluids mdr Ecoli tolerating diet dc in 1-2 days Subjective ROS Limited/Unobtainable: No Constitutional: Reports: no symptoms Respiratory: Reports: no symptoms Cardiovascular: Reports: no symptoms Allergies: Coded Allergies: IBUPROFEN (Verified Allergy, Intermediate, 10/26/16) Objective Last 24 Hour Vital Signs Date Time Temp Pulse Resp B/P Pulse Ox O2 Delivery O2 Flow Rate FiO2 10/29/16 11:47 97.9 94 15 149/55 98 Room Air 10/29/16 08:06 98.1 95 16 129/60 97 Room Air 10/29/16 04:00 97.3 96 20 141/62 97 Room Air 10/29/16 00:00 97.9 86 20 126/54 98 Room Air 10/28/16 19:00 98.1 88 20 127/53 98 Room Air 10/28/16 16:00 98.1 88 20 137/61 97 Room Air Intake and Output 10/28/16 10/29/16 19:00 07:00 Intake Total 775 ml 825 ml Output Total 800 ml 800 ml Balance -25 ml 25 ml IV Total 775 ml 825 ml Output Urine Total 800 ml 800 ml General Appearance: WD/WN HEENT: normocephalic, atraumatic Respiratory/Chest: chest wall non-tender, lungs clear Cardiovascular: normal peripheral pulses, normal rate Abdomen: normal bowel sounds, soft, non tender Genitourinary: normal external genitalia Extremities: no cyanosis Skin: no rash Current Medications Medications (Trade) Dose Ordered Sig/Patience Route PRN Reason Start Time Stop Time Status Last Admin Dose Admin Clonidine HCl (Catapres) 0.1 mg Q6H PRN ORAL SBP >160 10/26/16 18:45 11/25/16 18:44 Dextrose (Dextrose 50%) STAT PRN IV Hypoglycemia 10/26/16 18:45 11/25/16 18:44 10/26/16 21:47 Dextrose/Sodium Chloride (D5 0.45% NS) 1,000 ml @ 75 mls/hr [id number] IV 10/26/16 19:30 1/25/17 19:29 10/29/16 14:22 Heparin Sodium (Porcine) 5000 units 5,000 units EVERY 12 HOURS SUBQ 10/27/16 21:00 11/26/16 20:59 10/29/16 08:26 Insulin Aspart (NovoLOG) BEFORE MEALS AND HS SUBQ 10/26/16 21:00 11/25/16 20:59 10/29/16 13:23 Meropenem/Sodium Chloride (Merrem/Sodium Chloride 100ml bag) 100 ml @ 200 mls/hr Q12HR IVPB 10/28/16 12:30 11/02/16 12:29 10/29/16 08:27 Morphine Sulfate (Morphine Sulfate) 1 mg Q6H PRN IVP For Pain 10/26/16 18:45 11/02/16 18:44 MALOU DOUGLAS Oct 29, 2016 15:07
[2016-10-29] MEDS ORDERED: Heparin 5000 units/ml inj IV STA (15:23)
[2016-10-29] MEDS ORDERED: Heparin 25,000u/D5W 500ml 500 ML IV SCH (15:45)
[2016-10-29 16:00] VITALS: BP 90/37
[2016-10-29] MEDS: LORazepam 1mg tab ORAL PRN (17:21)
[2016-10-29 19:00] VITALS: BP 129/63
--- NOTE | 2016-10-29 22:08 | Consultation ---
DATE OF CONSULTATION: 10/29/2016 SURGICAL CONSULTATION CONSULTING PHYSICIAN: Troy Marcos M.D. ATTENDING PHYSICIAN: Devante Joya M.D. PERTINENT HISTORY: The patient is an 81-year-old , Greek diabetic female, who has a history of increasing coolness of her right foot. The patient was admitted on 10/26/2016 to the hospital from a [facility] facility for urinary tract infection. She has been on IV antibiotics, has had increased generalized weakness and more altered mental status than usual. There is no history of fever or chills. No history of nausea or vomiting. No shortness of breath. No chest pain. The patient has been on a status of Do Not Resuscitate/Do Not Intubate and came into the emergency room with pyuria and bacteria in the urine. The lactic acid was normal. She was dehydrated and the potassium was 2.9. She has been on IV antibiotics, IV hydration, and potassium replacement, and now came in for further care. PAST MEDICAL HISTORY: Pertinent for diabetes mellitus, on insulin, NovoLog, currently receiving sliding scale of protocol per the hospital depending on her Accu-Cheks with fairly good control. She is also getting clonidine 0.1 mg of medications, heparin, lorazepam, and meropenem 1 g q.12 h. ALLERGIES: No known. REVIEW OF SYSTEMS: Unobtainable. PHYSICAL EXAMINATION: VITAL SIGNS: Blood pressure was 94/36, temperature is 97 degrees, no fevers, pulse is 90, and respirations are 20. GENERAL: The patient is a well-developed, thin, frail, elderly female, in no distress. HEENT: Normal. She looks at me, but does not respond appropriately. I do not know if there is a language barrier or she has significant dementia. The mouth has poor dentition. The mucosa was dry. NECK: Supple. LUNGS: Clear. HEART: Rhythmic and regular. ABDOMEN: Soft and flat. No masses. EXTREMITIES: Full range of motion with extension of paralysis and right foot is quite cool and slightly mottled, but no ryan gangrene yet. Dorsalis pedis and posterior tibial pulses are absent. The knee is minimally cool, but not obviously as ischemic as the foot. The left foot is covered right now and the distal foot is warmer, with better capillary refill, however, she has a very bad ulceration of the lower leg with dry eschar over the pretibial and medial leg down to the ankle with very poor blood flow also, but not as bad as on the right. LABORATORY VALUES: White blood count is 13,400, hemoglobin is 10, hematocrit 29.9, 87 polys, and 11 lymphocytes. Blood chemistry, sodium 132, potassium 4.2, chloride 93, CO2 26, BUN 5 and creatinine 0.4. The urinalysis as mentioned before had leukocyte esterase 3+, slightly cloudy, 15 to 20 white blood cells, and moderate bacteria. IMPRESSION: 1. The patient is an elderly female with ischemic right foot, early pregangrenous changes, most likely secondary to diabetes, dehydration, and overall poor health. 2. Left lower leg significant eschar ulceration in the lower and pretibial ankle region down into the foot medially, but better blood supply although also tenuous. 3. Diabetes mellitus. 4. Dementia. PLAN: The patient is being observed. She is a Do Not Resuscitate status, and would have to be reversed to be able to do any kind of procedure. If anything was to be done, she would require a right [id number] amputation, which the family so far is not willing to do. I spoke with her daughter, who says that she will speak with her brother about it. Her daughter's name is Karena Gonzalez, number #[phone]. She will speak with her brother, Mahamed and make some decisions, however, she does understand the seriousness and that she might also require amputation of the left leg, which should be quite undertaken on an elderly frail female. Troy Marcos M.D. DR: BLANCA JOB#: [id number] CC:
[2016-10-29] MEDS: Enoxaparin 60mg Inj SUBQ SCH (22:23)
[2016-10-30 00:22] VITALS: BP 130/65
[2016-10-30] MEDS: LORazepam 1mg tab ORAL PRN (00:47)
[2016-10-30] MEDS: D5 1/2NS 1,000 ML IV SCH ×2 (03:45→16:50)
[2016-10-30 04:04] VITALS: BP 140/65
[2016-10-30] MEDS: NovoLOG Insulin Flexpen SUBQ SCH ×4 (06:20→21:01)
[2016-10-30 07:13] LABS: BASOPHILS % (AUTO) 0.3 % (0.0-2.0); EOSINOPHILS % (AUTO) 0.1 % (0.0-3.0); LYMPHOCYTES % (AUTO) 12.3 % (20.0-45.0); MEAN CORPUSCULAR HEMOGLOBIN 30.9 PG (27.0-31.0); MEAN CORPUSCULAR HGB CONC 32.7 G/DL (32.0-36.0); MEAN CORPUSCULAR VOLUME 95 FL (80-99); MEAN PLATELET VOLUME 7.8 FL (6.5-10.1); MONOCYTES % (AUTO) 4.2 % (1.0-10.0); NEUTROPHILS % (AUTO) 83.1 % (45.0-75.0); PLATELET COUNT 234 K/UL (150-450); RED BLOOD COUNT 3.36 M/UL (4.20-5.40); RED CELL DISTRIBUTION WIDTH 13.2 % (11.6-14.8)
[2016-10-30 07:40] LABS: ALANINE AMINOTRANSFERASE 7 U/L (3-33); ALBUMIN/GLOBULIN RATIO 0.4 (1.0-2.7); ANION GAP 12 (5-15); ASPARTATE AMINO TRANSFERASE 9 U/L (5-40); CALCIUM 7.6 mg/dL (8.6-10.2); CARBON DIOXIDE 28 mEQ/L (20-30); CHLORIDE 96 mEQ/L (98-107); CREATININE 0.4 mg/dL (0.5-0.9); CRP QUANT 12.6 mg/dL (< 0.5); HEMOLYSIS 7; MAGNESIUM 1.7 mg/dL (1.7-2.5); PHOSPHORUS 1.4 mg/dL (2.5-4.8); POTASSIUM 3.3 mEQ/L (3.4-4.9); SODIUM 136 mEQ/L (135-145); TOTAL PROTEIN 5.9 g/dL (6.6-8.7)
--- NOTE | 2016-10-30 07:40 | General Progress Note ---
Progress Note Progress Note Patient seen by dr aguilar yesterday. elderly woman, DNI/DNR. 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 Labs Test 10/30/16 06:05 White Blood Count 10.0 K/UL (4.8-10.8) Red Blood Count 3.36 M/UL (4.20-5.40) Hemoglobin 10.4 G/DL (12.0-16.0) Hematocrit 31.8 % (37.0-47.0) Mean Corpuscular Volume 95 FL (80-99) Mean Corpuscular Hemoglobin 30.9 PG (27.0-31.0) Mean Corpuscular Hemoglobin Concent 32.7 G/DL (32.0-36.0) Red Cell Distribution Width 13.2 % (11.6-14.8) Platelet Count 234 K/UL (150-450) Mean Platelet Volume 7.8 FL (6.5-10.1) Neutrophils (%) (Auto) 83.1 % (45.0-75.0) Lymphocytes (%) (Auto) 12.3 % (20.0-45.0) Monocytes (%) (Auto) 4.2 % (1.0-10.0) Eosinophils (%) (Auto) 0.1 % (0.0-3.0) Basophils (%) (Auto) 0.3 % (0.0-2.0) right foot is also compromised, cool, with right great toe showing small lesion of tip. Dr aguilar has talked to family about the indication for an above knee amputation. family is discussing the matter among themselves. aswait decision. COSMO LUI Oct 30, 2016 07:40
[2016-10-30 08:21] VITALS: BP 129/59
[2016-10-30 08:22] LABS: ERYTHROCYTE SEDIMENTATION RATE 113 MM/HR (0-42)
[2016-10-30] MEDS ORDERED: KCl 10% 40mEq/30ml liquid NG ONE (09:00)
[2016-10-30] MEDS: Enoxaparin 60mg Inj SUBQ SCH ×2 (09:09→21:01)
[2016-10-30] MEDS: [UNRECOGNIZED DRUG - OTHER] IVPB SCH ×4 (09:10→20:59)
[2016-10-30] MEDS: MEROPENEM IVPB SCH ×4 (09:10→20:59)
--- NOTE | 2016-10-30 09:50 | Infectious Diseases Prog Note ---
Assessment/Plan Assessment/Plan A: The patient is an 81-year-old female, UTI ESBL E Coli US of Kidney : Bilateral nonobstructive nephrolithiasis Bacteremia ESBL E Coli Sepsis Leucocytosis , SP Lt Leg Ch wound of lower Ext Rt leg PVD History of blindness. History of loss of hearing. Dementia. HLD HTN Diabetes PLAN: cont on Merrem d# 3 / , upon Dc may change to Invanz 1 gm daily to complete the course ( SP IV Zosyn day # 3 ) Monitor blood culture Monitor CBC and BMP. Monitor chest x-ray possible AKA if family agrees to Subjective Constitutional: Denies: anorexia, chills, drenching sweats, fatigue, fever, no symptoms, other Allergies: Coded Allergies: IBUPROFEN (Verified Allergy, Intermediate, 10/26/16) Objective Vital Signs Last 24 Hour Vital Signs Date Time Temp Pulse Resp B/P Pulse Ox O2 Delivery O2 Flow Rate FiO2 10/30/16 08:21 97.5 90 15 129/59 99 Room Air 10/30/16 04:04 98.8 88 20 140/65 95 Room Air 10/30/16 00:22 97.2 91 20 130/65 95 Room Air 10/29/16 19:00 98.1 98 20 129/63 98 Room Air 10/29/16 16:00 97.0 91 20 90/37 97 Room Air 10/29/16 11:47 97.9 94 15 149/55 98 Room Air Height (Feet): 5 Height (Inches): 7.00 Weight (Pounds): 130 HEENT: atraumatic Respiratory/Chest: normal breath sounds Cardiovascular: normal rate Abdomen: normal bowel sounds Laboratory Tests Test 10/30/16 06:05 White Blood Count 10.0 K/UL (4.8-10.8) Red Blood Count 3.36 M/UL (4.20-5.40) L Hemoglobin 10.4 G/DL (12.0-16.0) L Hematocrit 31.8 % (37.0-47.0) L Mean Corpuscular Volume 95 FL (80-99) Mean Corpuscular Hemoglobin 30.9 PG (27.0-31.0) Mean Corpuscular Hemoglobin Concent 32.7 G/DL (32.0-36.0) Red Cell Distribution Width 13.2 % (11.6-14.8) Platelet Count 234 K/UL (150-450) Mean Platelet Volume 7.8 FL (6.5-10.1) Neutrophils (%) (Auto) 83.1 % (45.0-75.0) H Lymphocytes (%) (Auto) 12.3 % (20.0-45.0) L Monocytes (%) (Auto) 4.2 % (1.0-10.0) Eosinophils (%) (Auto) 0.1 % (0.0-3.0) Basophils (%) (Auto) 0.3 % (0.0-2.0) Erythrocyte Sedimentation Rate 113 MM/HR (0-42) H Sodium Level 136 mEQ/L (135-145) Potassium Level 3.3 mEQ/L (3.4-4.9) L Chloride Level 96 mEQ/L (98-107) L Carbon Dioxide Level 28 mEQ/L (20-30) Anion Gap 12 (5-15) Blood Urea Nitrogen 6 mg/dL (7-23) L Creatinine 0.4 mg/dL (0.5-0.9) L Estimat Glomerular Filtration Rate mL/min (>60) Glucose Level 333 mg/dL (74-106) H Calcium Level 7.6 mg/dL (8.6-10.2) L Phosphorus Level 1.4 mg/dL (2.5-4.8) L Magnesium Level 1.7 mg/dL (1.7-2.5) Total Bilirubin 0.4 mg/dL (0.0-1.2) Aspartate Amino Transf (AST/SGOT) 9 U/L (5-40) Alanine Aminotransferase (ALT/SGPT) 7 U/L (3-33) Alkaline Phosphatase 97 U/L (35-104) C-Reactive Protein, Quantitative 12.6 mg/dL (< 0.5) H Total Protein 5.9 g/dL (6.6-8.7) L Albumin 1.8 g/dL (3.5-5.2) L Globulin 4.1 g/dL Albumin/Globulin Ratio 0.4 (1.0-2.7) L Current Medications Medications (Trade) Dose Ordered Sig/Patience Route PRN Reason Start Time Stop Time Status Last Admin Dose Admin Clonidine HCl (Catapres) 0.1 mg Q6H PRN ORAL SBP >160 10/26/16 18:45 11/25/16 18:44 Dextrose STAT PRN IV Hypoglycemia 10/26/16 18:45 11/25/16 18:44 10/26/16 21:47 Dextrose/Sodium Chloride (D5 0.45% NS) 1,000 ml @ 75 mls/hr [id number] IV 10/26/16 19:30 11/25/16 19:29 10/30/16 03:45 Enoxaparin Sodium 60 mg 60 mg Q12HR SUBQ 10/29/16 21:30 11/28/16 21:29 10/30/16 09:09 Insulin Aspart (NovoLOG) BEFORE MEALS AND HS SUBQ 10/26/16 21:00 11/25/16 20:59 10/30/16 06:20 Lorazepam (Ativan) 1 mg Q2H PRN ORAL For Anxiety 10/29/16 16:45 11/05/16 16:44 10/30/16 00:47 Meropenem/Sodium Chloride (Merrem/Sodium Chloride 100ml bag) 100 ml @ 200 mls/hr Q12HR IVPB 10/28/16 12:30 11/02/16 12:29 10/30/16 09:10 Morphine Sulfate (Morphine Sulfate) 1 mg Q6H PRN IVP For Pain 10/26/16 18:45 11/02/16 18:44 Potassium Chloride (KCl 10mEq/100ml Premix) 100 ml @ 100 mls/hr Q1H IVPB 10/30/16 10:00 10/30/16 13:59 NICHOLE YOUNG M.D. Oct 30, 2016 09:50
[2016-10-30] MEDS: Docusate 100mg cap ORAL SCH ×3 (11:00→18:00)
[2016-10-30 11:25] VITALS: BP 139/54
[2016-10-30] MEDS: Lactulose 20gm/30ml UDC ORAL SCH ×2 (13:00→18:00)
[2016-10-30] MEDS ORDERED: D5 1/2NS 1000ml IV ONE (14:28)
[2016-10-30 16:00] VITALS: BP 141/61
--- NOTE | 2016-10-30 16:58 | Pulmonology Progress Note ---
Assessment/Plan Problems: (1) UTI (urinary tract infection) (2) Sepsis (3) Acute encephalopathy (4) Severe protein-calorie malnutrition (5) At high risk for aspiration Assessment/Plan iv antibiotics iv fluids check cultures swallow evaluation check eletrolytes continue fluids mdr Ecoli surgery f/u for possible amputation of right foot. pt is DNR Subjective ROS Limited/Unobtainable: Yes - comforatable Allergies: Coded Allergies: IBUPROFEN (Verified Allergy, Intermediate, 10/26/16) Objective Last 24 Hour Vital Signs Date Time Temp Pulse Resp B/P Pulse Ox O2 Delivery O2 Flow Rate FiO2 10/30/16 16:00 98.2 90 17 141/61 100 Room Air 10/30/16 11:25 98.1 89 15 139/54 97 Room Air 10/30/16 08:21 97.5 90 15 129/59 99 Room Air 10/30/16 04:04 98.8 88 20 140/65 95 Room Air 10/30/16 00:22 97.2 91 20 130/65 95 Room Air 10/29/16 19:00 98.1 98 20 129/63 98 Room Air Intake and Output 10/29/16 10/30/16 19:00 07:00 Intake Total 100 ml 1208.00 ml Output Total 300 ml 300 ml Balance -200 ml 908.00 ml Intake Oral 100 ml 240 ml IV Total 968.00 ml Output Urine Total 300 ml 300 ml General Appearance: cachetic HEENT: normocephalic, atraumatic Respiratory/Chest: chest wall non-tender, lungs clear Cardiovascular: normal peripheral pulses, normal rate Abdomen: normal bowel sounds, soft, non tender Extremities: no cyanosis Skin: no rash Laboratory Tests 10/30/16 06:05: White Blood Count 10.0, Red Blood Count 3.36L, Hemoglobin 10.4L, Hematocrit 31.8L, Mean Corpuscular Volume 95, Mean Corpuscular Hemoglobin 30.9, Mean Corpuscular Hemoglobin Concent 32.7, Red Cell Distribution Width 13.2, Platelet Count 234, Mean Platelet Volume 7.8, Neutrophils (%) (Auto) 83.1H, Lymphocytes ( %) (Auto) 12.3L, Monocytes (%) (Auto) 4.2, Eosinophils (%) (Auto) 0.1, Basophils (%) (Auto) 0.3, Erythrocyte Sedimentation Rate 113H, Sodium Level 136 , Potassium Level 3.3L, Chloride Level 96L, Carbon Dioxide Level 28, Anion Gap 12, Blood Urea Nitrogen 6L, Creatinine 0.4L, Estimat Glomerular Filtration Rate , Glucose Level 333H, Calcium Level 7.6L, Phosphorus Level 1.4L, Magnesium Level 1.7, Total Bilirubin 0.4, Aspartate Amino Transf (AST/SGOT) 9, Alanine Aminotransferase (ALT/SGPT) 7, Alkaline Phosphatase 97, C-Reactive Protein, Quantitative 12.6H, Total Protein 5.9L, Albumin 1.8L, Globulin 4.1, Albumin/ Globulin Ratio 0.4L Current Medications Medications (Trade) Dose Ordered Sig/Patience Route PRN Reason Start Time Stop Time Status Last Admin Dose Admin Clonidine HCl (Catapres) 0.1 mg Q6H PRN ORAL SBP >160 10/26/16 18:45 11/25/16 18:44 Dextrose STAT PRN IV Hypoglycemia 10/26/16 18:45 11/25/16 18:44 10/26/16 21:47 Dextrose/Sodium Chloride (D5 0.45% NS) 1,000 ml @ 75 mls/hr [id number] IV 10/26/16 19:30 11/25/16 19:29 10/30/16 03:45 Docusate Sodium (Colace) 100 mg THREE TIMES A DAY ORAL 10/30/16 11:00 11/29/16 10:59 Enoxaparin Sodium (Lovenox) 60 mg Q12HR SUBQ 10/29/16 21:30 11/28/16 21:29 10/30/16 09:09 Insulin Aspart (NovoLOG) BEFORE MEALS AND HS SUBQ 10/26/16 21:00 11/25/16 20:59 10/30/16 06:20 Lactulose (Cephulac) 30 gm THREE TIMES A DAY ORAL 10/30/16 13:00 11/29/16 12:59 Lorazepam (Ativan) 1 mg Q2H PRN ORAL For Anxiety 10/29/16 16:45 11/05/16 16:44 10/30/16 00:47 Meropenem/Sodium Chloride (Merrem/Sodium Chloride 100ml bag) 100 ml @ 200 mls/hr Q12HR IVPB 10/28/16 12:30 11/02/16 12:29 10/30/16 09:10 Mineral Oil (Fleet's Mineral Oil Enema) 133 ml EVERY OTHER DAY RECTAL 11/01/16 09:00 12/01/16 08:59 Morphine Sulfate (Morphine Sulfate) 1 mg Q6H PRN IVP For Pain 10/26/16 18:45 11/02/16 18:44 Polyethylene Glycol (Miralax) 17 gm BEDTIME ORAL 10/30/16 21:00 11/29/16 20:59 Sennosides (Senokot) 8.6 mg DAILY ORAL 10/30/16 11:00 11/29/16 10:59 MALOU DOUGLAS Oct 30, 2016 16:58
[2016-10-30 20:00] VITALS: BP 137/61
[2016-10-30] MEDS: Miralax 17gm pkt ORAL SCH (21:00)
[2016-10-31] VITALS: BP 123/59
[2016-10-31] MEDS: D5 1/2NS 1,000 ML IV SCH ×3 (01:34→17:32)
[2016-10-31 04:00] VITALS: BP 136/54
[2016-10-31] MEDS: NovoLOG Insulin Flexpen SUBQ SCH ×4 (06:22→21:05)
[2016-10-31 07:12] LABS: BASOPHILS % (AUTO) 0.3 % (0.0-2.0); EOSINOPHILS % (AUTO) 0.1 % (0.0-3.0); LYMPHOCYTES % (AUTO) 19.3 % (20.0-45.0); MEAN CORPUSCULAR HEMOGLOBIN 30.7 PG (27.0-31.0); MEAN CORPUSCULAR HGB CONC 32.2 G/DL (32.0-36.0); MEAN CORPUSCULAR VOLUME 95 FL (80-99); MEAN PLATELET VOLUME 7.4 FL (6.5-10.1); MONOCYTES % (AUTO) 5.6 % (1.0-10.0); NEUTROPHILS % (AUTO) 74.8 % (45.0-75.0); PLATELET COUNT 255 K/UL (150-450); RED BLOOD COUNT 3.24 M/UL (4.20-5.40); RED CELL DISTRIBUTION WIDTH 13.1 % (11.6-14.8); WHITE BLOOD COUNT 8.3 K/UL (4.8-10.8)
--- NOTE | 2016-10-31 07:36 | Wound Care Consultation ---
Wound Assessment Wound Assessment : Wound Present on Admission: Yes New Wound: No Status Change of Wound: No Wound Location Body Site Modif: mid Wound Location Body Site: sacral Wound Type: pressure ulcer Julianna Test: Does not Julianna Pressure Ulcer Stage: II Wound Thickness: Partial Thickness Wound Length: 1.0 Wound Width: 1.0 Wound Depth: 0.1 Percent of Wound [place]/Red: 100 Wound Drainage Description: Serosanguineous Wound Drainage Amount: Scant Wound Drainage Odor: None/Absent Tissue Surrounding Wound: Erythemic Wound General Appearance: Reddened Wound Comment #1 Mid Sacral Pressure Ulcer Stage II. Received consult for Mid Sacral. Patient Diagnosis: Dementia,Severe Protein-Calorie Malnutrition,Sepsis, Dehydration, Albumin level of 1.8 L, Protein level of 5.9L, HGB of 9.9. Patient admitted with Stage 1 to mid sacral site, despite nursing interventions provided site noted at stage 2 now, no s/s of infection, wound bed 100% pink, No s/s of pain noted upon assessment to site, patient repositioned to offload mid sacral area. Site was cleansed and DD applied. Recommendation -Local wound care as ordered. -Low air loss Overlay. -Turn and reposition. -Optimize Nutrition. -Keep clean and dry. -Assess and follow up with MD for any changes noted. SYLVIA CAVAZOS Oct 31, 2016 07:36
[2016-10-31 07:42] LABS: ALANINE AMINOTRANSFERASE 6 U/L (3-33); ALBUMIN/GLOBULIN RATIO 0.4 (1.0-2.7); ANION GAP 9 (5-15); ASPARTATE AMINO TRANSFERASE 8 U/L (5-40); CALCIUM 7.6 mg/dL (8.6-10.2); CARBON DIOXIDE 31 mEQ/L (20-30); CHLORIDE 97 mEQ/L (98-107); CREATININE 0.4 mg/dL (0.5-0.9); HEMOLYSIS 2; MAGNESIUM 1.7 mg/dL (1.7-2.5); PHOSPHORUS 1.4 mg/dL (2.5-4.8); POTASSIUM 3.6 mEQ/L (3.4-4.9); SODIUM 137 mEQ/L (135-145); TOTAL PROTEIN 5.8 g/dL (6.6-8.7)
[2016-10-31 08:00] VITALS: BP 145/68
[2016-10-31] MEDS: Docusate 100mg cap ORAL SCH ×4 (09:00→17:32)
[2016-10-31] MEDS: Lactulose 20gm/30ml UDC ORAL SCH ×4 (09:00→17:32)
[2016-10-31] MEDS: [UNRECOGNIZED DRUG - OTHER] IVPB SCH ×4 (09:40→21:03)
[2016-10-31] MEDS: MEROPENEM IVPB SCH ×4 (09:40→21:03)
[2016-10-31] MEDS: Enoxaparin 60mg Inj SUBQ SCH ×2 (09:42→21:05)
--- NOTE | 2016-10-31 10:02 | Infectious Diseases Prog Note ---
Assessment/Plan Assessment/Plan A: The patient is an 81-year-old female, UTI ESBL E Coli US of Kidney : Bilateral nonobstructive nephrolithiasis Bacteremia ESBL E Coli Sepsis SP Leucocytosis SP Lt Leg Ch wound of lower Ext Rt leg PVD Elevated ESR, CRP History of blindness. History of loss of hearing. Dementia. HLD HTN Diabetes DNR PLAN: cont on Merrem d# 4 / , upon Dc may change to Invanz 1 gm daily to complete the course ( SP IV Zosyn day # 3 ) Monitor blood culture Monitor CBC and BMP. Monitor chest x-ray possible AKA if family agrees to Subjective Allergies: Coded Allergies: IBUPROFEN (Verified Allergy, Intermediate, 10/26/16) Subjective remains afebrile. appears comfortable Objective Vital Signs Last 24 Hour Vital Signs Date Time Temp Pulse Resp B/P Pulse Ox O2 Delivery O2 Flow Rate FiO2 10/31/16 08:00 96.8 90 20 145/68 98 Room Air 10/31/16 04:00 97.9 90 20 136/54 99 Room Air 10/31/16 00:00 97.7 87 20 123/59 98 Room Air 10/30/16 20:00 98.1 96 17 137/61 99 Room Air 10/30/16 16:00 98.2 90 17 141/61 100 Room Air 10/30/16 11:25 98.1 89 15 139/54 97 Room Air Height (Feet): 5 Height (Inches): 7.00 Weight (Pounds): 130 General Appearance: no acute distress Respiratory/Chest: no respiratory distress Cardiovascular: normal rate, regular rhythm Abdomen: normal bowel sounds, soft, non tender, non distended Laboratory Tests Test 10/31/16 05:40 White Blood Count 8.3 K/UL (4.8-10.8) Red Blood Count 3.24 M/UL (4.20-5.40) L Hemoglobin 9.9 G/DL (12.0-16.0) L Hematocrit 30.9 % (37.0-47.0) L Mean Corpuscular Volume 95 FL (80-99) Mean Corpuscular Hemoglobin 30.7 PG (27.0-31.0) Mean Corpuscular Hemoglobin Concent 32.2 G/DL (32.0-36.0) Red Cell Distribution Width 13.1 % (11.6-14.8) Platelet Count 255 K/UL (150-450) Mean Platelet Volume 7.4 FL (6.5-10.1) Neutrophils (%) (Auto) 74.8 % (45.0-75.0) Lymphocytes (%) (Auto) 19.3 % (20.0-45.0) L Monocytes (%) (Auto) 5.6 % (1.0-10.0) Eosinophils (%) (Auto) 0.1 % (0.0-3.0) Basophils (%) (Auto) 0.3 % (0.0-2.0) Sodium Level 137 mEQ/L (135-145) Potassium Level 3.6 mEQ/L (3.4-4.9) Chloride Level 97 mEQ/L (98-107) L Carbon Dioxide Level 31 mEQ/L (20-30) H Anion Gap 9 (5-15) Blood Urea Nitrogen 3 mg/dL (7-23) L Creatinine 0.4 mg/dL (0.5-0.9) L Estimat Glomerular Filtration Rate mL/min (>60) Glucose Level 288 mg/dL (74-106) H Calcium Level 7.6 mg/dL (8.6-10.2) L Phosphorus Level 1.4 mg/dL (2.5-4.8) L Magnesium Level 1.7 mg/dL (1.7-2.5) Total Bilirubin 0.5 mg/dL (0.0-1.2) Aspartate Amino Transf (AST/SGOT) 8 U/L (5-40) Alanine Aminotransferase (ALT/SGPT) 6 U/L (3-33) Alkaline Phosphatase 98 U/L (35-104) Total Protein 5.8 g/dL (6.6-8.7) L Albumin 1.8 g/dL (3.5-5.2) L Globulin 4.0 g/dL Albumin/Globulin Ratio 0.4 (1.0-2.7) L Current Medications Medications (Trade) Dose Ordered Sig/Patience Route PRN Reason Start Time Stop Time Status Last Admin Dose Admin Clonidine HCl (Catapres) 0.1 mg Q6H PRN ORAL SBP >160 10/26/16 18:45 11/25/16 18:44 Dextrose STAT PRN IV Hypoglycemia 10/26/16 18:45 11/25/16 18:44 10/26/16 21:47 Dextrose/Sodium Chloride (D5 0.45% NS) 1,000 ml @ 75 mls/hr [id number] IV 10/26/16 19:30 11/25/16 19:29 10/31/16 01:34 Docusate Sodium (Colace) 100 mg THREE TIMES A DAY ORAL 10/30/16 11:00 11/29/16 10:59 Enoxaparin Sodium (Lovenox) 60 mg Q12HR SUBQ 10/29/16 21:30 11/28/16 21:29 10/31/16 09:42 Insulin Aspart (NovoLOG) BEFORE MEALS AND HS SUBQ 10/26/16 21:00 11/25/16 20:59 10/31/16 06:22 Lactulose (Cephulac) 30 gm THREE TIMES A DAY ORAL 10/30/16 13:00 11/29/16 12:59 Lorazepam (Ativan) 1 mg Q2H PRN ORAL For Anxiety 10/29/16 16:45 11/05/16 16:44 10/30/16 00:47 Meropenem/Sodium Chloride (Merrem/Sodium Chloride 100ml bag) 100 ml @ 200 mls/hr Q12HR IVPB 10/28/16 12:30 11/02/16 12:29 10/31/16 09:40 Mineral Oil (Fleet's Mineral Oil Enema) 133 ml EVERY OTHER DAY RECTAL 11/01/16 09:00 12/01/16 08:59 Morphine Sulfate (Morphine Sulfate) 1 mg Q6H PRN IVP For Pain 10/26/16 18:45 11/02/16 18:44 Polyethylene Glycol (Miralax) 17 gm BEDTIME ORAL 10/30/16 21:00 11/29/16 20:59 Sennosides (Senokot) 8.6 mg DAILY ORAL 10/30/16 11:00 11/29/16 10:59 RAINER PENNINGTON Oct 31, 2016 10:01
--- NOTE | 2016-10-31 12:32 | General Progress Note ---
Progress Note Progress Note Afebrile. Pt is obtunded. The rt foot is cold with absent pulses, the left leg has an extensive area of necrosis. She is DNR/DNI. She would need bilateral AK amputations if the family wants to pursue any therapeutic measures. Leland Frazier MD Oct 31, 2016 12:32
--- NOTE | 2016-10-31 14:35 | Diagnostic Imaging Report ---
Indications: DYSPNEA Technique: Portable AP chest Findings: Comparison: 10/26 16 Left lung volume remains decreased compared to right with basal linear densities, adjacent pleural effusion versus thickening. Right lung and pleura remain clear. Heart size and pulmonary vasculature remain within normal limits. Aortic arch calcification, old left humeral fracture again noted. IMPRESSION: No change from 2 days prior
--- NOTE | 2016-10-31 15:53 | Internal Med Progress Note ---
Subjective Date of Service: Oct 31, 2016 Physician Name MurphyLandon queen Attending Physician Devante Joya Current Medications Medications (Trade) Dose Ordered Sig/Patience Route PRN Reason Start Time Stop Time Status Last Admin Dose Admin Clonidine HCl (Catapres) 0.1 mg Q6H PRN ORAL SBP >160 10/26/16 18:45 11/25/16 18:44 Dextrose STAT PRN IV Hypoglycemia 10/26/16 18:45 11/25/16 18:44 10/26/16 21:47 Dextrose/Sodium Chloride (D5 0.45% NS) 1,000 ml @ 75 mls/hr [id number] IV 10/26/16 19:30 11/25/16 19:29 10/31/16 01:34 Docusate Sodium (Colace) 100 mg THREE TIMES A DAY ORAL 10/30/16 11:00 11/29/16 10:59 Enoxaparin Sodium (Lovenox) 60 mg Q12HR SUBQ 10/29/16 21:30 11/28/16 21:29 10/31/16 09:42 Insulin Aspart (NovoLOG) BEFORE MEALS AND HS SUBQ 10/26/16 21:00 11/25/16 20:59 10/31/16 13:12 Lactulose (Cephulac) 30 gm THREE TIMES A DAY ORAL 10/30/16 13:00 11/29/16 12:59 Lorazepam (Ativan) 1 mg Q2H PRN ORAL For Anxiety 10/29/16 16:45 11/05/16 16:44 10/30/16 00:47 Meropenem/Sodium Chloride (Merrem/Sodium Chloride 100ml bag) 100 ml @ 200 mls/hr Q12HR IVPB 10/28/16 12:30 11/02/16 12:29 10/31/16 09:40 Mineral Oil (Fleet's Mineral Oil Enema) 133 ml EVERY OTHER DAY RECTAL 11/01/16 09:00 12/01/16 08:59 Morphine Sulfate (Morphine Sulfate) 1 mg Q6H PRN IVP For Pain 10/26/16 18:45 11/02/16 18:44 Polyethylene Glycol (Miralax) 17 gm BEDTIME ORAL 10/30/16 21:00 11/29/16 20:59 Sennosides (Senokot) 8.6 mg DAILY ORAL 10/30/16 11:00 11/29/16 10:59 Allergies: Coded Allergies: IBUPROFEN (Verified Allergy, Intermediate, 10/26/16) ROS Limited/Unobtainable: Yes Subjective Cover for Int Med-Dr Joya. Objective Last Vital Signs Date Time Temp Pulse Resp B/P Pulse Ox O2 Delivery O2 Flow Rate FiO2 10/31/16 08:00 96.8 90 20 145/68 98 Room Air General Appearance: no apparent distress, alert, thin EENT: PERRL/EOMI, normal ENT inspection Neck: non-tender, normal alignment, supple Cardiovascular: normal peripheral pulses, normal rate, regular rhythm, no gallop/murmur, no JVD Respiratory/Chest: chest wall non-tender, lungs clear, normal breath sounds, no respiratory distress, no accessory muscle use Abdomen: normal bowel sounds, non tender, soft, no organomegaly, no mass Extremities: normal range of motion, non-tender Neurologic: dental prosthetist II-XII grossly normal Skin: normal pigmentation, warm/dry Laboratory Tests Test 10/31/16 05:40 White Blood Count 8.3 K/UL (4.8-10.8) Red Blood Count 3.24 M/UL (4.20-5.40) L Hemoglobin 9.9 G/DL (12.0-16.0) L Hematocrit 30.9 % (37.0-47.0) L Mean Corpuscular Volume 95 FL (80-99) Mean Corpuscular Hemoglobin 30.7 PG (27.0-31.0) Mean Corpuscular Hemoglobin Concent 32.2 G/DL (32.0-36.0) Red Cell Distribution Width 13.1 % (11.6-14.8) Platelet Count 255 K/UL (150-450) Mean Platelet Volume 7.4 FL (6.5-10.1) Neutrophils (%) (Auto) 74.8 % (45.0-75.0) Lymphocytes (%) (Auto) 19.3 % (20.0-45.0) L Monocytes (%) (Auto) 5.6 % (1.0-10.0) Eosinophils (%) (Auto) 0.1 % (0.0-3.0) Basophils (%) (Auto) 0.3 % (0.0-2.0) Sodium Level 137 mEQ/L (135-145) Potassium Level 3.6 mEQ/L (3.4-4.9) Chloride Level 97 mEQ/L (98-107) L Carbon Dioxide Level 31 mEQ/L (20-30) H Anion Gap 9 (5-15) Blood Urea Nitrogen 3 mg/dL (7-23) L Creatinine 0.4 mg/dL (0.5-0.9) L Estimat Glomerular Filtration Rate mL/min (>60) Glucose Level 288 mg/dL (74-106) H Calcium Level 7.6 mg/dL (8.6-10.2) L Phosphorus Level 1.4 mg/dL (2.5-4.8) L Magnesium Level 1.7 mg/dL (1.7-2.5) Total Bilirubin 0.5 mg/dL (0.0-1.2) Aspartate Amino Transf (AST/SGOT) 8 U/L (5-40) Alanine Aminotransferase (ALT/SGPT) 6 U/L (3-33) Alkaline Phosphatase 98 U/L (35-104) Total Protein 5.8 g/dL (6.6-8.7) L Albumin 1.8 g/dL (3.5-5.2) L Globulin 4.0 g/dL Albumin/Globulin Ratio 0.4 (1.0-2.7) L Intake and Output 10/30/16 10/31/16 19:00 07:00 Intake Total 1025 ml 932.5 ml Output Total 400 ml 550 ml Balance 625 ml 382.5 ml Intake Oral 0 ml 120 ml IV Total 1025 ml 812.5 ml Output Urine Total 400 ml 550 ml Assessment/Plan Problem List: (1) Sepsis Assessment & Plan: E. Coli. Cont meropenem per ID (2) UTI (urinary tract infection) Assessment & Plan: E. Coli. See ID note. Cont meropenem (3) Severe protein-calorie malnutrition (4) Acute encephalopathy (5) Ischemic pain of right foot Assessment & Plan: See surgery note. (6) Diabetes mellitus Assessment & Plan: Cont novolog sliding scale. Status: not improved LANDON MURPHY Oct 31, 2016 15:53
[2016-10-31] MEDS ORDERED: Tubing IV Secondary IV ONE (18:30)
[2016-10-31] MEDS ORDERED: D5 1/2NS 1000ml IV ONE (18:30)
[2016-10-31 20:00] VITALS: BP 124/49
[2016-10-31] MEDS: Miralax 17gm pkt ORAL SCH (21:00)
[2016-11-01] VITALS: BP 125/60
[2016-11-01 06:06] VITALS: BP 115/63
[2016-11-01] MEDS: D5 1/2NS 1,000 ML IV SCH ×2 (07:00→21:42)
[2016-11-01] MEDS: NovoLOG Insulin Flexpen SUBQ SCH ×4 (07:06→20:49)
[2016-11-01 07:50] LABS: BASOPHILS % (AUTO) 0.4 % (0.0-2.0); LYMPHOCYTES % (AUTO) 12.3 % (20.0-45.0); MEAN CORPUSCULAR HEMOGLOBIN 30.5 PG (27.0-31.0); MEAN CORPUSCULAR HGB CONC 32.2 G/DL (32.0-36.0); MEAN CORPUSCULAR VOLUME 95 FL (80-99); MEAN PLATELET VOLUME 7.2 FL (6.5-10.1); MONOCYTES % (AUTO) 2.7 % (1.0-10.0); NEUTROPHILS % (AUTO) 84.6 % (45.0-75.0); PLATELET COUNT 278 K/UL (150-450); RED BLOOD COUNT 3.53 M/UL (4.20-5.40); RED CELL DISTRIBUTION WIDTH 13.9 % (11.6-14.8); WHITE BLOOD COUNT 8.8 K/UL (4.8-10.8)
[2016-11-01 08:21] LABS: ANION GAP 9 (5-15); CALCIUM 7.7 mg/dL (8.6-10.2); CARBON DIOXIDE 34 mEQ/L (20-30); CHLORIDE 93 mEQ/L (98-107); CREATININE 0.5 mg/dL (0.5-0.9); HEMOLYSIS 3; POTASSIUM 3.5 mEQ/L (3.4-4.9); SODIUM 136 mEQ/L (135-145)
--- NOTE | 2016-11-01 08:29 | Infectious Diseases Prog Note ---
Assessment/Plan Assessment/Plan A: The patient is an 81-year-old female, UTI ESBL E Coli US of Kidney : Bilateral nonobstructive nephrolithiasis Bacteremia ESBL E Coli Sepsis SP Leucocytosis SP Lt Leg Ch wound of lower Ext, critical ischemia Rt leg PVD Elevated ESR, CRP History of blindness. History of loss of hearing. Dementia. HLD HTN Diabetes DNR PLAN: cont on Merrem d# / , upon Dc may change to Invanz 1 gm daily to complete the course ( SP IV Zosyn day # 3 ) Monitor blood culture Monitor CBC and BMP. Monitor chest x-ray possible AKA if family agrees to Subjective Allergies: Coded Allergies: IBUPROFEN (Verified Allergy, Intermediate, 10/26/16) Subjective pt unable to provide any information remains afebrile. Objective Vital Signs Last 24 Hour Vital Signs Date Time Temp Pulse Resp B/P Pulse Ox O2 Delivery O2 Flow Rate FiO2 11/01/16 06:06 97.7 92 20 115/63 96 Room Air 11/01/16 00:00 97.0 81 18 125/60 96 Room Air 10/31/16 20:00 98.2 94 20 124/49 92 Room Air Height (Feet): 5 Height (Inches): 7.00 Weight (Pounds): 130 General Appearance: no acute distress Respiratory/Chest: no respiratory distress Cardiovascular: normal rate, regular rhythm Abdomen: normal bowel sounds, soft, non tender, non distended Extremities: other - foot bandaged Laboratory Tests Test 11/01/16 06:55 White Blood Count 8.8 K/UL (4.8-10.8) Red Blood Count 3.53 M/UL (4.20-5.40) L Hemoglobin 10.8 G/DL (12.0-16.0) L Hematocrit 33.5 % (37.0-47.0) L Mean Corpuscular Volume 95 FL (80-99) Mean Corpuscular Hemoglobin 30.5 PG (27.0-31.0) Mean Corpuscular Hemoglobin Concent 32.2 G/DL (32.0-36.0) Red Cell Distribution Width 13.9 % (11.6-14.8) Platelet Count 278 K/UL (150-450) Mean Platelet Volume 7.2 FL (6.5-10.1) Neutrophils (%) (Auto) 84.6 % (45.0-75.0) H Lymphocytes (%) (Auto) 12.3 % (20.0-45.0) L Monocytes (%) (Auto) 2.7 % (1.0-10.0) Eosinophils (%) (Auto) 0.0 % (0.0-3.0) Basophils (%) (Auto) 0.4 % (0.0-2.0) Sodium Level Pending Potassium Level Pending Chloride Level Pending Carbon Dioxide Level Pending Blood Urea Nitrogen Pending Creatinine Pending Estimat Glomerular Filtration Rate Pending Glucose Level Pending Calcium Level Pending Current Medications Medications (Trade) Dose Ordered Sig/Patience Route PRN Reason Start Time Stop Time Status Last Admin Dose Admin Clonidine HCl (Catapres) 0.1 mg Q6H PRN ORAL SBP >160 10/26/16 18:45 11/25/16 18:44 Dextrose STAT PRN IV Hypoglycemia 10/26/16 18:45 11/25/16 18:44 10/26/16 21:47 Dextrose/Sodium Chloride (D5 0.45% NS) 1,000 ml @ 75 mls/hr [id number] IV 10/26/16 19:30 11/25/16 19:29 11/01/16 07:00 Docusate Sodium (Colace) 100 mg THREE TIMES A DAY ORAL 10/30/16 11:00 11/29/16 10:59 Enoxaparin Sodium (Lovenox) 60 mg Q12HR SUBQ 10/29/16 21:30 11/28/16 21:29 10/31/16 21:05 Insulin Aspart (NovoLOG) BEFORE MEALS AND HS SUBQ 10/26/16 21:00 11/25/16 20:59 11/01/16 07:06 Lactulose (Cephulac) 30 gm THREE TIMES A DAY ORAL 10/30/16 13:00 11/29/16 12:59 Lorazepam (Ativan) 1 mg Q2H PRN ORAL For Anxiety 10/29/16 16:45 11/05/16 16:44 10/30/16 00:47 Meropenem/Sodium Chloride (Merrem/Sodium Chloride 100ml bag) 100 ml @ 200 mls/hr Q12HR IVPB 10/28/16 12:30 11/02/16 12:29 10/31/16 21:03 Mineral Oil (Fleet's Mineral Oil Enema) 133 ml EVERY OTHER DAY RECTAL 11/01/16 09:00 12/01/16 08:59 Morphine Sulfate (Morphine Sulfate) 1 mg Q6H PRN IVP For Pain 10/26/16 18:45 11/02/16 18:44 Polyethylene Glycol (Miralax) 17 gm BEDTIME ORAL 10/30/16 21:00 11/29/16 20:59 Sennosides (Senokot) 8.6 mg DAILY ORAL 10/30/16 11:00 11/29/16 10:59 RAINER PENNINGTON Nov 01, 2016 08:29
[2016-11-01] MEDS: Fleet's Mineral Oil Enema RECTAL SCH (09:43)
[2016-11-01] MEDS: Lactulose 20gm/30ml UDC ORAL SCH ×3 (09:43→17:59)
[2016-11-01] MEDS: Enoxaparin 60mg Inj SUBQ SCH ×2 (09:43→20:50)
[2016-11-01] MEDS: Docusate 100mg cap ORAL SCH ×3 (09:44→17:59)
[2016-11-01] MEDS: MEROPENEM IVPB SCH ×4 (09:44→20:47)
[2016-11-01] MEDS: [UNRECOGNIZED DRUG - OTHER] IVPB SCH ×4 (09:44→20:47)
--- NOTE | 2016-11-01 13:16 | General Progress Note ---
Progress Note Progress Note Afebrile. Pt is non communicative. The left leg is wrapped, the rt foot is cold. She needs bilateral AK amputations. We are awaiting feedback from family. Leland Frazier MD Nov 01, 2016 13:16
[2016-11-01] MEDS ORDERED: D5 1/2NS 1000ml IV ONE (14:38)
--- NOTE | 2016-11-01 17:24 | Internal Med Progress Note ---
Subjective Date of Service: Nov 01, 2016 Physician Name Julian,Rebecca Attending Physician Devante Joya Current Medications Medications (Trade) Dose Ordered Sig/Patience Route PRN Reason Start Time Stop Time Status Last Admin Dose Admin Clonidine HCl (Catapres) 0.1 mg Q6H PRN ORAL SBP >160 10/26/16 18:45 11/25/16 18:44 Dextrose STAT PRN IV Hypoglycemia 10/26/16 18:45 11/25/16 18:44 10/26/16 21:47 Dextrose/Sodium Chloride (D5 0.45% NS) 1,000 ml @ 75 mls/hr [id number] IV 10/26/16 19:30 11/25/16 19:29 11/01/16 07:00 Docusate Sodium (Colace) 100 mg THREE TIMES A DAY ORAL 10/30/16 11:00 11/29/16 10:59 11/01/16 09:44 Enoxaparin Sodium (Lovenox) 60 mg Q12HR SUBQ 10/29/16 21:30 11/28/16 21:29 11/01/16 09:43 Insulin Aspart (NovoLOG) BEFORE MEALS AND HS SUBQ 10/26/16 21:00 11/25/16 20:59 11/01/16 16:50 Lactulose (Cephulac) 30 gm THREE TIMES A DAY ORAL 10/30/16 13:00 11/29/16 12:59 11/01/16 09:43 Lorazepam (Ativan) 1 mg Q2H PRN ORAL For Anxiety 10/29/16 16:45 11/05/16 16:44 10/30/16 00:47 Meropenem/Sodium Chloride (Merrem/Sodium Chloride 100ml bag) 100 ml @ 200 mls/hr Q12HR IVPB 10/28/16 12:30 11/06/16 12:29 11/01/16 09:44 Mineral Oil (Fleet's Mineral Oil Enema) 133 ml EVERY OTHER DAY RECTAL 11/01/16 09:00 12/01/16 08:59 11/01/16 09:43 Morphine Sulfate (Morphine Sulfate) 1 mg Q6H PRN IVP For Pain 10/26/16 18:45 11/02/16 18:44 Polyethylene Glycol (Miralax) 17 gm BEDTIME ORAL 10/30/16 21:00 11/29/16 20:59 Sennosides (Senokot) 8.6 mg DAILY ORAL 10/30/16 11:00 11/29/16 10:59 11/01/16 09:44 Allergies: Coded Allergies: IBUPROFEN (Verified Allergy, Intermediate, 10/26/16) ROS Limited/Unobtainable: Yes Subjective Cover for Int Med-Dr Joya. Objective Last Vital Signs Date Time Temp Pulse Resp B/P Pulse Ox O2 Delivery O2 Flow Rate FiO2 11/01/16 06:06 97.7 92 20 115/63 96 Room Air Laboratory Tests Test 11/01/16 06:55 White Blood Count 8.8 K/UL (4.8-10.8) Red Blood Count 3.53 M/UL (4.20-5.40) L Hemoglobin 10.8 G/DL (12.0-16.0) L Hematocrit 33.5 % (37.0-47.0) L Mean Corpuscular Volume 95 FL (80-99) Mean Corpuscular Hemoglobin 30.5 PG (27.0-31.0) Mean Corpuscular Hemoglobin Concent 32.2 G/DL (32.0-36.0) Red Cell Distribution Width 13.9 % (11.6-14.8) Platelet Count 278 K/UL (150-450) Mean Platelet Volume 7.2 FL (6.5-10.1) Neutrophils (%) (Auto) 84.6 % (45.0-75.0) H Lymphocytes (%) (Auto) 12.3 % (20.0-45.0) L Monocytes (%) (Auto) 2.7 % (1.0-10.0) Eosinophils (%) (Auto) 0.0 % (0.0-3.0) Basophils (%) (Auto) 0.4 % (0.0-2.0) Sodium Level 136 mEQ/L (135-145) Potassium Level 3.5 mEQ/L (3.4-4.9) Chloride Level 93 mEQ/L (98-107) L Carbon Dioxide Level 34 mEQ/L (20-30) H Anion Gap 9 (5-15) Blood Urea Nitrogen 3 mg/dL (7-23) L Creatinine 0.5 mg/dL (0.5-0.9) Estimat Glomerular Filtration Rate mL/min (>60) Glucose Level 345 mg/dL (74-106) H Calcium Level 7.7 mg/dL (8.6-10.2) L Intake and Output 10/31/16 11/01/16 19:00 07:00 Intake Total 1020 ml 752 ml Output Total 200 ml 800 ml Balance 820 ml -48 ml Intake Oral 20 ml 90 ml IV Total 1000 ml 662 ml Output Urine Total 200 ml 800 ml Objective General Appearance: no apparent distress, alert, thin EENT: PERRL/EOMI, normal ENT inspection Neck: non-tender, normal alignment, supple Cardiovascular: normal peripheral pulses, normal rate, regular rhythm, no gallop/murmur, no JVD Respiratory/Chest: chest wall non-tender, lungs clear, normal breath sounds, no respiratory distress, no accessory muscle use Abdomen: normal bowel sounds, non tender, soft, no organomegaly, no mass Extremities: normal range of motion, non-tender 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 Coli. Cont meropenem per ID (2) UTI (urinary tract infection) Assessment & Plan: E. Coli. See ID note. Cont meropenem (3) Severe protein-calorie malnutrition (4) Acute encephalopathy (5) Ischemic pain of right foot Assessment & Plan: See surgery note. (6) Diabetes mellitus Assessment & Plan: Cont novolog sliding scale. REBECCA JULIAN Nov 01, 2016 17:24
[2016-11-01] MEDS: Levemir Flexpen SUBQ SCH (18:15)
[2016-11-01 20:00] VITALS: BP 140/64
[2016-11-01] MEDS: LORazepam 1mg tab ORAL PRN (20:47)
[2016-11-01] MEDS: Miralax 17gm pkt ORAL SCH (21:00)
[2016-11-02] VITALS: BP 137/64
[2016-11-02 04:00] VITALS: BP 132/63
[2016-11-02] MEDS: NovoLOG Insulin Flexpen SUBQ SCH ×4 (06:23→21:01)
[2016-11-02 06:35] LABS: BASOPHILS % (AUTO) 0.5 % (0.0-2.0); EOSINOPHILS % (AUTO) 0.1 % (0.0-3.0); LYMPHOCYTES % (AUTO) 16.1 % (20.0-45.0); MEAN CORPUSCULAR HGB CONC 32.7 G/DL (32.0-36.0); MEAN CORPUSCULAR VOLUME 95 FL (80-99); MEAN PLATELET VOLUME 7.1 FL (6.5-10.1); MONOCYTES % (AUTO) 4.4 % (1.0-10.0); NEUTROPHILS % (AUTO) 78.9 % (45.0-75.0); PLATELET COUNT 283 K/UL (150-450); RED BLOOD COUNT 3.09 M/UL (4.20-5.40); RED CELL DISTRIBUTION WIDTH 12.7 % (11.6-14.8); WHITE BLOOD COUNT 11.4 K/UL (4.8-10.8)
[2016-11-02 06:52] LABS: CALCIUM 7.4 mg/dL (8.6-10.2); CARBON DIOXIDE 37 mEQ/L (20-30); CHLORIDE 91 mEQ/L (98-107); CREATININE 0.4 mg/dL (0.5-0.9); HEMOLYSIS 2; SODIUM 134 mEQ/L (135-145)
[2016-11-02 06:58] LABS: ANION GAP 6 (5-15)
[2016-11-02 07:00] LABS: POTASSIUM 2.7 mEQ/L (3.4-4.9)
[2016-11-02 08:00] VITALS: BP 124/52
--- NOTE | 2016-11-02 08:49 | Infectious Diseases Prog Note ---
Assessment/Plan Assessment/Plan A: The patient is an 81-year-old female, UTI ESBL E Coli US of Kidney : Bilateral nonobstructive nephrolithiasis Bacteremia ESBL E Coli Sepsis SP Leucocytosis - recurrent, mild, suspect 2/2 critical limb ischemia Lt Leg Ch wound of lower Ext, critical ischemia Rt leg PVD Elevated ESR, CRP History of blindness. History of loss of hearing. Dementia. HLD HTN Diabetes DNR PLAN: cont on Merrem d# / , upon Dc may change to Invanz 1 gm daily to complete the course ( SP IV Zosyn day # 3 ) Monitor blood culture Monitor CBC and BMP. Monitor chest x-ray needs bilateral AKA if family agrees Subjective Allergies: Coded Allergies: IBUPROFEN (Verified Allergy, Intermediate, 10/26/16) Subjective pt unable to provide any information remains afebrile, recurrent mild leukocytosis Objective Vital Signs Last 24 Hour Vital Signs Date Time Temp Pulse Resp B/P Pulse Ox O2 Delivery O2 Flow Rate FiO2 11/02/16 08:00 98.1 91 20 124/52 96 Room Air 11/02/16 04:00 98.2 101 16 132/63 95 Room Air 11/02/16 00:00 97.9 100 16 137/64 99 Room Air 11/01/16 20:00 97.7 97 17 140/64 98 Room Air Height (Feet): 5 Height (Inches): 7.00 Weight (Pounds): 130 General Appearance: no acute distress Respiratory/Chest: no respiratory distress Cardiovascular: normal rate, regular rhythm Abdomen: normal bowel sounds, soft, non tender, non distended Laboratory Tests Test 11/02/16 05:10 White Blood Count 11.4 K/UL (4.8-10.8) H Red Blood Count 3.09 M/UL (4.20-5.40) L Hemoglobin 9.6 G/DL (12.0-16.0) L Hematocrit 29.4 % (37.0-47.0) L Mean Corpuscular Volume 95 FL (80-99) Mean Corpuscular Hemoglobin 31.0 PG (27.0-31.0) Mean Corpuscular Hemoglobin Concent 32.7 G/DL (32.0-36.0) Red Cell Distribution Width 12.7 % (11.6-14.8) Platelet Count 283 K/UL (150-450) Mean Platelet Volume 7.1 FL (6.5-10.1) Neutrophils (%) (Auto) 78.9 % (45.0-75.0) H Lymphocytes (%) (Auto) 16.1 % (20.0-45.0) L Monocytes (%) (Auto) 4.4 % (1.0-10.0) Eosinophils (%) (Auto) 0.1 % (0.0-3.0) Basophils (%) (Auto) 0.5 % (0.0-2.0) Sodium Level 134 mEQ/L (135-145) L Potassium Level 2.7 mEQ/L (3.4-4.9) *L Chloride Level 91 mEQ/L (98-107) L Carbon Dioxide Level 37 mEQ/L (20-30) H Anion Gap 6 (5-15) Blood Urea Nitrogen 3 mg/dL (7-23) L Creatinine 0.4 mg/dL (0.5-0.9) L Estimat Glomerular Filtration Rate mL/min (>60) Glucose Level 134 mg/dL (74-106) #H Calcium Level 7.4 mg/dL (8.6-10.2) L Current Medications Medications (Trade) Dose Ordered Sig/Patience Route PRN Reason Start Time Stop Time Status Last Admin Dose Admin Clonidine HCl (Catapres) 0.1 mg Q6H PRN ORAL SBP >160 10/26/16 18:45 11/25/16 18:44 Dextrose STAT PRN IV Hypoglycemia 10/26/16 18:45 11/25/16 18:44 10/26/16 21:47 Dextrose/Sodium Chloride (D5 0.45% NS) 1,000 ml @ 75 mls/hr [id number] IV 10/26/16 19:30 11/25/16 19:29 11/01/16 21:42 Docusate Sodium (Colace) 100 mg THREE TIMES A DAY ORAL 10/30/16 11:00 11/29/16 10:59 11/01/16 09:44 Enoxaparin Sodium (Lovenox) 60 mg Q12HR SUBQ 10/29/16 21:30 11/28/16 21:29 11/01/16 20:50 Insulin Aspart (NovoLOG) BEFORE MEALS AND HS SUBQ 10/26/16 21:00 11/25/16 20:59 11/02/16 06:23 Insulin Detemir (Levemir) 10 units DAILY@1730 SUBQ 11/01/16 18:00 12/01/16 17:59 11/01/16 18:15 Lactulose (Cephulac) 30 gm THREE TIMES A DAY ORAL 10/30/16 13:00 11/29/16 12:59 11/01/16 09:43 Lorazepam (Ativan) 1 mg Q2H PRN ORAL For Anxiety 10/29/16 16:45 11/05/16 16:44 11/01/16 20:47 Meropenem/Sodium Chloride (Merrem/Sodium Chloride 100ml bag) 100 ml @ 200 mls/hr Q12HR IVPB 10/28/16 12:30 11/06/16 12:29 11/01/16 20:47 Mineral Oil (Fleet's Mineral Oil Enema) 133 ml EVERY OTHER DAY RECTAL 11/01/16 09:00 12/01/16 08:59 11/01/16 09:43 Morphine Sulfate (Morphine Sulfate) 1 mg Q6H PRN IVP For Pain 10/26/16 18:45 11/02/16 18:44 Polyethylene Glycol (Miralax) 17 gm BEDTIME ORAL 10/30/16 21:00 11/29/16 20:59 Sennosides (Senokot) 8.6 mg DAILY ORAL 10/30/16 11:00 11/29/16 10:59 11/01/16 09:44 RAINER PENNINGTON Nov 02, 2016 08:49
[2016-11-02] MEDS: Lactulose 20gm/30ml UDC ORAL SCH ×3 (09:00→18:00)
[2016-11-02] MEDS: Docusate 100mg cap ORAL SCH ×3 (09:00→18:00)
[2016-11-02] MEDS: Enoxaparin 60mg Inj SUBQ SCH ×2 (09:37→21:01)
[2016-11-02] MEDS: [UNRECOGNIZED DRUG - OTHER] IVPB SCH ×4 (09:39→21:17)
[2016-11-02] MEDS: MEROPENEM IVPB SCH ×4 (09:39→21:17)
[2016-11-02] MEDS: D5 1/2NS 1,000 ML IV SCH (11:55)
[2016-11-02 12:00] VITALS: BP 104/51
[2016-11-02 16:00] VITALS: BP 136/64
--- NOTE | 2016-11-02 16:18 | Pulmonology Progress Note ---
Assessment/Plan Problems: (1) UTI (urinary tract infection) (2) Sepsis (3) Acute encephalopathy (4) Severe protein-calorie malnutrition (5) At high risk for aspiration Assessment/Plan I had a long conversation with the pts son ( zander) He agreed with comfort care. Pt will not get any surgery or artificial feeding tube. She will be discharged to [facility] and they arrange for hospice there. dc back to NH in am with comfort meds. pt is DNR Subjective ROS Limited/Unobtainable: Yes - pt not eating Allergies: Coded Allergies: IBUPROFEN (Verified Allergy, Intermediate, 10/26/16) Objective Last 24 Hour Vital Signs Date Time Temp Pulse Resp B/P Pulse Ox O2 Delivery O2 Flow Rate FiO2 11/02/16 16:00 97.3 98 20 136/64 98 Room Air 11/02/16 12:00 97.7 96 20 104/51 99 Room Air 11/02/16 08:00 98.1 91 20 124/52 96 Room Air 11/02/16 04:00 98.2 101 16 132/63 95 Room Air 11/02/16 00:00 97.9 100 16 137/64 99 Room Air 11/01/16 20:00 97.7 97 17 140/64 98 Room Air Intake and Output 11/01/16 11/02/16 19:00 07:00 Intake Total 1375 ml 2740 ml Output Total 800 ml Balance 1375 ml 1940 ml Intake Oral 420 ml 240 ml IV Total 955 ml 2500 ml Output Urine Total 800 ml # Bowel Movements 1 1 General Appearance: WD/WN HEENT: normocephalic Respiratory/Chest: chest wall non-tender, lungs clear Cardiovascular: normal peripheral pulses, normal rate Abdomen: normal bowel sounds, soft, non tender Extremities: no cyanosis, no clubbing 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/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 II-XII grossly normal, no motor/sensory deficits Laboratory Tests 11/02/16 05:10: White Blood Count 11.4H, Red Blood Count 3.09L, Hemoglobin 9.6L, Hematocrit 29.4L, Mean Corpuscular Volume 95, Mean Corpuscular Hemoglobin 31.0, Mean Corpuscular Hemoglobin Concent 32.7, Red Cell Distribution Width 12.7, Platelet Count 283, Mean Platelet Volume 7.1, Neutrophils (%) (Auto) 78.9H, Lymphocytes ( %) (Auto) 16.1L, Monocytes (%) (Auto) 4.4, Eosinophils (%) (Auto) 0.1, Basophils (%) (Auto) 0.5, Sodium Level 134L, Potassium Level 2.7*L, Chloride Level 91L, Carbon Dioxide Level 37H, Anion Gap 6, Blood Urea Nitrogen 3L, Creatinine 0.4L, Estimat Glomerular Filtration Rate , Glucose Level 134#H, Calcium Level 7.4L Current Medications Medications (Trade) Dose Ordered Sig/Patience Route PRN Reason Start Time Stop Time Status Last Admin Dose Admin Clonidine HCl (Catapres) 0.1 mg Q6H PRN ORAL SBP >160 10/26/16 18:45 11/25/16 18:44 Dextrose STAT PRN IV Hypoglycemia 10/26/16 18:45 11/25/16 18:44 10/26/16 21:47 Dextrose/Sodium Chloride (D5 0.45% NS) 1,000 ml @ 75 mls/hr [id number] IV 10/26/16 19:30 11/25/16 19:29 11/02/16 11:55 Docusate Sodium (Colace) 100 mg THREE TIMES A DAY ORAL 10/30/16 11:00 11/29/16 10:59 11/01/16 09:44 Enoxaparin Sodium (Lovenox) 60 mg Q12HR SUBQ 10/29/16 21:30 11/28/16 21:29 11/02/16 09:37 Insulin Aspart (NovoLOG) BEFORE MEALS AND HS SUBQ 10/26/16 21:00 11/25/16 20:59 11/02/16 06:23 Insulin Detemir 10 units 10 units DAILY@1730 SUBQ 11/01/16 18:00 12/01/16 17:59 11/01/16 18:15 Lactulose (Cephulac) 30 gm THREE TIMES A DAY ORAL 10/30/16 13:00 11/29/16 12:59 11/01/16 09:43 Lorazepam (Ativan) 1 mg Q2H PRN ORAL For Anxiety 10/29/16 16:45 11/05/16 16:44 11/01/16 20:47 Meropenem/Sodium Chloride (Merrem/Sodium Chloride 100ml bag) 100 ml @ 200 mls/hr Q12HR IVPB 10/28/16 12:30 11/06/16 12:29 11/02/16 09:39 Mineral Oil (Fleet's Mineral Oil Enema) 133 ml EVERY OTHER DAY RECTAL 11/01/16 09:00 12/01/16 08:59 11/01/16 09:43 Morphine Sulfate (Morphine Sulfate) 1 mg Q6H PRN IVP For Pain 10/26/16 18:45 11/02/16 18:44 Polyethylene Glycol (Miralax) 17 gm BEDTIME ORAL 10/30/16 21:00 11/29/16 20:59 Potassium Chloride (KCl 10mEq/100ml Premix) 100 ml @ 100 mls/hr Q1H IVPB 11/02/16 10:00 11/02/16 17:59 11/02/16 15:01 Sennosides (Senokot) 8.6 mg DAILY ORAL 10/30/16 11:00 11/29/16 10:59 11/01/16 09:44 MALOU DOUGLAS Nov 02, 2016 16:18
[2016-11-02] MEDS: Levemir Flexpen SUBQ SCH (17:08)
[2016-11-02] MEDS ORDERED: D5 1/2NS 1000ml IV ONE (17:46)
[2016-11-02] MEDS ORDERED: Tubing IV Secondary IV ONE (17:53)
[2016-11-02 19:00] VITALS: BP 110/53
[2016-11-02] MEDS: Miralax 17gm pkt ORAL SCH (20:42)
[2016-11-03] VITALS: BP 111/50
[2016-11-03 04:00] VITALS: BP 111/49
[2016-11-03] MEDS: NovoLOG Insulin Flexpen SUBQ SCH ×2 (06:30→11:30)
[2016-11-03 08:00] VITALS: BP 144/59
--- NOTE | 2016-11-03 09:20 | General Surgery Progress Note ---
General Surgery-Progress Note Subjective Reason for Consult lower extremity ischemia with gangrene Additional Comments patient seen and examined at bedside. not communicative. laying comfortable. Objective Last 24 Hour Vital Signs Date Time Temp Pulse Resp B/P Pulse Ox O2 Delivery O2 Flow Rate FiO2 11/03/16 08:00 96.3 89 16 144/59 100 Room Air 11/03/16 04:00 97.3 66 16 111/49 100 Room Air 11/03/16 00:00 97.6 76 16 111/50 99 Room Air 11/02/16 19:00 97.2 95 20 110/53 98 Room Air 11/02/16 16:00 97.3 98 20 136/64 98 Room Air 11/02/16 12:00 97.7 96 20 104/51 99 Room Air I&O Intake and Output 11/02/16 11/03/16 19:00 07:00 Intake Total 300 ml 300 ml Output Total 1100 ml 1450 ml Balance -800 ml -1150 ml IV Total 300 ml 300 ml Output Urine Total 1100 ml 1450 ml Dressing: dry Wound: other Drains: none Cardiovascular: other - HR noted Respiratory: other - non labored Abdomen: soft, non-tender Extremities: other - right leg with ischemic changes and distal ray gangrene. no signs of active infection. left leg with ischemia and dressings present. skin blistering with some erythema noted. Assessment Post-op Diagnosis lower extremity ischemia with gangrene Plan Additional Comments Goals of care discuss with family and from my understanding they do not believe the patient would wish to have surgery and are planning hospice care. Morbidity of AKA in fragile elder patient high. hospice appropriate. thank you for allowing us to take part in the care of Corey Godoy. John Parra MD Nov 03, 2016 09:20
[2016-11-03] MEDS: MEROPENEM IVPB SCH ×2 (09:21)
[2016-11-03] MEDS: [UNRECOGNIZED DRUG - OTHER] IVPB SCH ×2 (09:21)
[2016-11-03] MEDS: Enoxaparin 60mg Inj SUBQ SCH (09:31)
--- NOTE | 2016-11-03 09:37 | Infectious Diseases Prog Note ---
Assessment/Plan Assessment/Plan A: The patient is an 81-year-old female, UTI ESBL E Coli US of Kidney : Bilateral nonobstructive nephrolithiasis Bacteremia ESBL E Coli Sepsis SP Leucocytosis - recurrent, mild, suspect 2/2 critical limb ischemia Lt Leg Ch wound of lower Ext, critical ischemia Rt leg PVD Elevated ESR, CRP History of blindness. History of loss of hearing. Dementia. HLD HTN Diabetes DNR PLAN: cont on Merrem d# 7 / , upon Dc may change to Invanz 1 gm daily to complete the course ( SP IV Zosyn day # 3 ) Monitor blood culture Monitor CBC and BMP. Monitor chest x-ray possible hospice placement Subjective Constitutional: Denies: anorexia, chills, drenching sweats, fatigue, fever, no symptoms, other Allergies: Coded Allergies: IBUPROFEN (Verified Allergy, Intermediate, 10/26/16) Objective Vital Signs Last 24 Hour Vital Signs Date Time Temp Pulse Resp B/P Pulse Ox O2 Delivery O2 Flow Rate FiO2 11/03/16 08:00 96.3 89 16 144/59 100 Room Air 11/03/16 04:00 97.3 66 16 111/49 100 Room Air 11/03/16 00:00 97.6 76 16 111/50 99 Room Air 11/02/16 19:00 97.2 95 20 110/53 98 Room Air 11/02/16 16:00 97.3 98 20 136/64 98 Room Air 11/02/16 12:00 97.7 96 20 104/51 99 Room Air Height (Feet): 5 Height (Inches): 7.00 Weight (Pounds): 130 HEENT: atraumatic Respiratory/Chest: lungs clear Cardiovascular: regularly irregular Abdomen: no organomegaly Current Medications Medications (Trade) Dose Ordered Sig/Patience Route PRN Reason Start Time Stop Time Status Last Admin Dose Admin Clonidine HCl (Catapres) 0.1 mg Q6H PRN ORAL SBP >160 10/26/16 18:45 11/25/16 18:44 Dextrose STAT PRN IV Hypoglycemia 10/26/16 18:45 11/25/16 18:44 11/03/16 06:43 Docusate Sodium (Colace) 100 mg THREE TIMES A DAY ORAL 10/30/16 11:00 11/29/16 10:59 11/01/16 09:44 Enoxaparin Sodium (Lovenox) 60 mg Q12HR SUBQ 10/29/16 21:30 11/28/16 21:29 11/03/16 09:31 Insulin Aspart (NovoLOG) BEFORE MEALS AND HS SUBQ 10/26/16 21:00 11/25/16 20:59 11/02/16 21:01 Insulin Detemir (Levemir) 10 units DAILY@1730 SUBQ 11/01/16 18:00 12/01/16 17:59 11/02/16 17:08 Lactulose (Cephulac) 30 gm THREE TIMES A DAY ORAL 10/30/16 13:00 11/29/16 12:59 11/01/16 09:43 Lorazepam (Ativan) 1 mg Q2H PRN ORAL For Anxiety 10/29/16 16:45 11/05/16 16:44 11/01/16 20:47 Meropenem/Sodium Chloride (Merrem/Sodium Chloride 100ml bag) 100 ml @ 200 mls/hr Q12HR IVPB 10/28/16 12:30 11/06/16 12:29 11/03/16 09:21 Mineral Oil (Fleet's Mineral Oil Enema) 133 ml EVERY OTHER DAY RECTAL 11/01/16 09:00 12/01/16 08:59 11/01/16 09:43 Polyethylene Glycol (Miralax) 17 gm BEDTIME ORAL 10/30/16 21:00 11/29/16 20:59 Sennosides (Senokot) 8.6 mg DAILY ORAL 10/30/16 11:00 11/29/16 10:59 11/01/16 09:44 NICHOLE YOUNG M.D. Nov 03, 2016 09:37
[2016-11-03] MEDS: Lactulose 20gm/30ml UDC ORAL SCH ×2 (09:38→13:00)
[2016-11-03] MEDS: Docusate 100mg cap ORAL SCH ×2 (09:38→13:00)
[2016-11-03] MEDS: Fleet's Mineral Oil Enema RECTAL SCH (09:45)
[2016-11-03] MEDS ORDERED: INVANZ1 GM IVPB (11:59)
[2016-11-03 12:00] VITALS: BP 146/67
--- NOTE | 2016-11-03 13:34 | Diagnostic Imaging Report ---
APPROVED REPORT CPT Code: 75662 Symptoms Comments: Injury Comments Right leg pale, faint pedal pulses, cool RIGHTLEG: Common femoral artery waveform analysis is within normal limits at rest. Color flow duplex sonography reveals calcification throughout the superficial femoral artery. A moderate (60-75%) stenosis is seen in the mid superficial femoral artery. Color flow duplex sonography also reveals an occlusion in the distal femoral artery. Reconstitution is noted distally at the level of the adductor canal. Imaging also reveals another occlusion in the popliteal, anterior tibial and dorsalis pedis arteries. The color and Doppler flow were absent within these segments. Dr. Joya was notified of abnormal results at 1510 hours.
--- NOTE | 2016-11-03 13:37 | Diagnostic Imaging Report ---
APPROVED REPORT CPT Code: 38326 RIGHT LEG: Venous imaging reveals recanalized chronic thrombus in the superficial femoral vein. The remainder of the deep venous system is within normal limits. There is no evidence of thrombus in the common femoral, popliteal or calf veins. The greater saphenous vein is also within normal limits. Doppler indicates normal spontaneous flow within these segments. LEFT LEG: Venous imaging reveals a patent deep venous system. There is no evidence of thrombus within the femoral, or popliteal veins. Doppler indicates normal spontaneous flow within these segments. The tibial segments not well visualized. The greater saphenous vein is occluded in the junction area, remaining segments are within normal limits. There is no evidence of acute deep vein thrombosis.
--- NOTE | 2016-11-03 17:46 | Pulmonology Progress Note ---
Assessment/Plan Problems: (1) UTI (urinary tract infection) (2) Sepsis (3) Acute encephalopathy (4) Severe protein-calorie malnutrition (5) At high risk for aspiration Assessment/Plan I had a long conversation with the pts son ( zander) He agreed with comfort care. Pt will not get any surgery or artificial feeding tube. She will be discharged to [facility] and they arrange for hospice there. dc back to NH in am with comfort meds. pt is DNR Subjective ROS Limited/Unobtainable: Yes Constitutional: Reports: anorexia, fatigue Allergies: Coded Allergies: IBUPROFEN (Verified Allergy, Intermediate, 10/26/16) Objective Last 24 Hour Vital Signs Date Time Temp Pulse Resp B/P Pulse Ox O2 Delivery O2 Flow Rate FiO2 11/03/16 12:00 96.7 92 18 146/67 97 Room Air 11/03/16 08:00 96.3 89 16 144/59 100 Room Air 11/03/16 04:00 97.3 66 16 111/49 100 Room Air 11/03/16 00:00 97.6 76 16 111/50 99 Room Air 11/02/16 19:00 97.2 95 20 110/53 98 Room Air Intake and Output 11/02/16 11/03/16 19:00 07:00 Intake Total 300 ml 300 ml Output Total 1100 ml 1450 ml Balance -800 ml -1150 ml IV Total 300 ml 300 ml Output Urine Total 1100 ml 1450 ml General Appearance: no acute distress, cachetic HEENT: normocephalic, atraumatic, PERRL Respiratory/Chest: chest wall non-tender, lungs clear, normal breath sounds Breasts: no masses Cardiovascular: normal peripheral pulses, normal rate, regular rhythm Abdomen: normal bowel sounds, soft, non tender, no organomegaly Genitourinary: normal external genitalia Extremities: no cyanosis Skin: no rash, no lesions Neurologic/Psychiatric: responsive, abnormal CN, motor weakness, sensory deficit, disoriented MALOU DOUGLAS Nov 03, 2016 17:46
--- NOTE | 2016-11-05 11:06 | Discharge Summary ---
Discharge Summary Hospital Course Date of Admission Oct 26, 2016 at 12:42 Date of Discharge Nov 03, 2016 at 15:32 Admitting Diagnosis uti,weakness HPI Corey Godoy is a 81 year old female who was admitted on Oct 26, 2016 at 12:42 for Uti, Weakness Hospital Course [id number] Discharge Discharge Disposition Patient was discharged to SNF/Subacute Facility for hospice Discharge Diagnoses: Iman Fregoso NP Nov 05, 2016 11:06
--- NOTE | 2016-11-06 00:28 | Discharge Summary 2 SIG ---
DATE OF ADMISSION: 10/26/2016 DATE OF DISCHARGE: 11/03/2016 CONSULTANTS: 1. John Maria M.D. 2. Troy Marcso M.D. BRIEF HOSPITAL COURSE: The patient is an 81-year-old female, who was brought in from SNF for evaluation. The patient was treated for urinary tract infection at intermediate with antibiotics, however, nursing staff noted poor oral intake and increasing generalized weakness for few days and was more altered than usual. At ED, workup showed leukocytosis and UA with evidence of pyuria and bacteriuria. She was started on IV antibiotics. Potassium was replaced. She was followed by Dr. Maria. Urine culture showed growth of ESBL E. coli. Blood culture showed growth of the same organism and was given Merrem. Surgical evaluation was called in. The patient had an ischemic right foot with early pregangrenous changes most likely secondary to diabetes, dehydration, and overall poor health. The patient is on DNR status and would require a right [id number] amputation. Family was consulted. The family was initially undecided. The goals of care were discussed with family and opted for hospice care. Morbidity for above-knee amputation in a fragile elderly patient is high. Hospice more appropriate. She was provided with wound care and was seen by wound care nurse. The patient was eventually discharged to [facility] to be placed under hospice care. The family agreed for comfort care with no surgery and no artificial feeding. The patient was continued on DNR status. FINAL DIAGNOSES: 1. Sepsis. 2. Acute toxic metabolic encephalopathy. 3. Urinary tract infection Extended spectrum Beta-Lactamase Escherichia coli. 4. Bacteremia with Extended spectrum Beta-Lactamase Escherichia coli. 5. Right leg severe peripheral vascular disease. 6. Dementia. 7. Hyperlipidemia. 8. Hypertension. 9. Diabetes mellitus. 10. Severe protein-calorie malnutrition. 11. Necrotic wound on the left leg, present on admission. 12. Mid sacral pressure ulcer stage II, present on admission. 13. Palliative care/comfort care. Devante Joya M.D. I have been assigned to dictate discharge summary on this account and I was not involved in the patient's management. Iman Fregoso N.P. DR: MADELYN JOB#: [id number] CC: RENU
== END 2016-11-03 15:32 | DRG 871 ==
LOC: ENRESERVDT → ENRESERVTM → EDBD 11:43 → EMR 11:56 → 4E 12:42 → EDBEDREQ 17:07
DX: A41.9 Sepsis, unspecified organism (principal); E43 Unspecified severe protein-calorie malnutrition; G92 Toxic encephalopathy; L89.152 Pressure ulcer of sacral region, stage 2; E11.52 Type 2 diabetes mellitus with diabetic peripheral angiopathy with gangrene; E86.0 Dehydration; F03.90 Unspecified dementia, unspecified severity, without behavioral disturbance, psychotic disturbance, mood disturbance, and anxiety; N39.0 Urinary tract infection, site not specified; L97.329 Non-pressure chronic ulcer of left ankle with unspecified severity; B96.20 Unspecified Escherichia coli [E. coli] as the cause of diseases classified elsewhere; Z51.5 Encounter for palliative care; Z16.12 Extended spectrum beta lactamase (ESBL) resistance; Z66 Do not resuscitate; D72.829 Elevated white blood cell count, unspecified; E78.5 Hyperlipidemia, unspecified; E87.6 Hypokalemia; I10 Essential (primary) hypertension; Z79.4 Long term (current) use of insulin; N20.0 Calculus of kidney; Z68.20 Body mass index [BMI] 20.0-20.9, adult
CPT/HCPCS: 36415; 71010; 76775; 80048; 80053; 81003; 82550; 82553; 82962; 83036; 83605; 83735; 84100; 84484; 85007; 85025; 85610; 85651; 85730; 86140; 87040; 87081; 87086; 87181; 93005; 93926; 93970; J1815; J8499; S5561